=== PATIENT | female | born 1995 | race Caucasian/White ===

== ENCOUNTER 2018-04-14 15:58 | Outpatient (REF) | payer MEDICAID, SELFPAY ==
--- NOTE | 2018-04-14 14:45 | PAPFT_PTH ---
PATIENT: Pawel Ball LOC: [facility] U#:[id number] AGE/SX: 22/F ROOM: RE04/14/[address]: ABDIRAHMAN Han : 1995 BED: DIS: 04/14/2018 SPEC #: [id number] RECD: 04/14/18 17:15 STATUS: CARLOTA WATT #: [id number] FARIBA: 04/14/18 14:[address]: Julia Davis DEPT: [facility] Cytology RECD BY: Marina Blanco ENTERED: 04/14/18 17:15 SP TYPE: PAPFT SIRENA DR: ANN Koo Tissues: 1 - CX/ENDOCX FOR PAP SMEARS Procedures: PAP THIN PREP/UVM Screening Comments: [id number]
[2018-04-17 15:01] LABS: Chlamydia Result Negative; GC Result Negative
== END 2018-04-14 16:18 ==
LOC: LBN 15:58
PROVIDERS: PCP Nurse Practitioner Pediatrics; Visit Provider Nurse Practitioner Family
DX: Z11.3 Encounter for screening for infections with a predominantly sexual mode of transmission (principal); Z12.4 Encounter for screening for malignant neoplasm of cervix
CPT/HCPCS: 87491; 87591; 88142

== ENCOUNTER 2018-05-02 07:22 | Emergency (ER) | payer MEDICAID, SELFPAY ==
[2018-05-02 07:27] VITALS: BP 123/85; PULSE 61; RESP 16; TEMP 36.5; O2SAT 99
--- NOTE | 2018-05-02 07:31 | W.ED.GENAD ---
Discharge Plan Disposition Patient Disposition: HOME Condition: Improving Discharge Details Chief Complaint: Urinary Clinical Impression: Urinary tract infection Primary Care Provider: Ivory Xiong ED Provider: Estuardo Goode Home Meds and New Rx's Prescriptions: New cephalexin 500 mg tablet 500 mg PO TID 7 Days Qty: 21 RF: 0 phenazopyridine [Pyridium] 100 mg tablet 100 mg PO TID 0 Days RF: 0 Continue oxybutynin chloride 5 MG tablet extended release 24hr 5 mg PO DAILY Qty: 30 RF: 4 Discharge Instructions Instructions: Urinary Tract Infection in Women (ED) Additional Instructions: Please take medications as prescribed. Return if you develop a fever, worsening discomfort with urination, or any other acute concern. Medical Decision Making 22-year-old female presents from home with 2 days of dysuria. She has had recurrent UTIs in the past. She arrives with normal vital signs and an exam that is only notable for discrete suprapubic tenderness. Patient's urinalysis is consistent with acute urinary tract infection. We will treat her with a course of antibiotics as well as Pyridium. She will return to the ED for any acute concern. Lab Data Lab results reviewed: Yes I reviewed the patient's lab results. 05/02/18 07:24 Urine - Reflex from Ua Urine Culture - Pending Laboratory Tests Range/Units 05/02/18 07:24 Urine Color (Yellow) Yellow Urine Clarity Sl cloudy Urine pH (5-8) 7.0 Ur Specific [place] (1.005-1.025) 1.010 Urine Protein (Negative) mg/dL Negative Urine Ketones (Negative) mg/dL Negative Urine Blood (Negative) Moderate H Urine Nitrite (Negative) Negative Urine Bilirubin (Negative) Negative Urine Urobilinogen (Up TO 0.2) EU/dL 0.2 Ur Leukocyte Esterase (Negative) Small H Urine RBC (0-2) >50 H Urine WBC (0-5) HPF >50 Ur Epithelial Cells Not Applicable Urine Crystals Not Applicable Urine Bacteria Not Applicable Urine Mucus Not Applicable Ur Culture Indicated? Yes Urine Glucose (Negative) mg/dL Negative HPI General Mode of arrival: ambulatory. Date/Time Provider Initiated Documentation: 05/02/18 07:27. Limitations to Documentation: no limitations. Information obtained by: patient. History of Present Illness 22 year old F presents to the emergency department with the chief complaint of UTI, described as moderate, Quality is described as burning, and is localized to the abdomen and pelvis. Patient reports no radiation. Patient started experiencing this day(s) and it has been constant. No relieving factors improve symptom(s), No exacerbating factors reported . HPI Narrative: 22-year-old female presents with day 2 of increased frequency of urination and burning similar to previous urinary tract infections. She does take oxybutynin daily and is seen Dr. Jaffe in the past. No recent antibiotics. She has had normal menstrual period this month. She states that she has otherwise been well Related Data Home Medications Medication Instructions Recorded Confirmed oxybutynin chloride 5 mg PO DAILY #30 tab-cap 12/16/17 05/02/18 cephalexin 500 mg PO TID 7 Days #21 tab 05/02/18 phenazopyridine [Pyridium] 100 mg PO TID 0 Days tab 05/02/18 Previous Rx's Medication Instructions Recorded oxybutynin chloride 5 mg PO DAILY #30 tab-cap 12/16/17 cephalexin 500 mg PO TID 7 Days #21 tab 05/02/18 phenazopyridine [Pyridium] 100 mg PO TID 0 Days tab 05/02/18 Allergies Allergy/AdvReac Type Severity Reaction Status Date / Time No Known Allergies Allergy Verified 05/02/18 07:34 Review of Systems Review of Systems 4 systems reviewed and otherwise - Exam Narrative Exam Narrative: GEN: awake, alert, oriented 3. Pleasant, well groomed, interactive. HEAD: Normocephalic, atraumatic ENT: Mucous membranes moist, oropharynx unremarkable, External ear exam unremarkable EYES: PERRL, EOMI NECK: Full ROM, no NAYAN, no menigismus CHEST/RESP: Nontender, clear to auscultation bilateral, no wheeze/rhonchi/rales CARDIOVASCULAR: RRR, no murmur, rub avi. 2+ Rad pulse bilateral ABDOMEN: Soft, minimal suprapubic tenderness without rebound or guarding, no mass. +Bowel sounds EXT: Full ROM, no edema, no rash Neuro: Grossly normal neurologic exam, conversant, interactive. Psych: Speech fluent, thoughts congruent, affect normal
[2018-05-02 07:33] LABS: Bilirubin Negative (Negative); Blood Moderate (Negative); Clarity Sl Cloudy; Glucose Negative (Negative); Ketones Negative (Negative); Leukocyte Esterase Small (Negative); Nitrite Negative (Negative); Urobilinogen 0.2 EU/dL (Up TO 0.2)
--- NOTE | 2018-05-02 07:34 | ED.GENADUL_ITS ---
Discharge Plan Disposition Patient Disposition: HOME Condition: Improving Discharge Details Chief Complaint: Urinary Clinical Impression: Urinary tract infection Primary Care Provider: Ivory Xiong ED Provider: Estuardo Goode Home Meds and New Rx's Prescriptions: New cephalexin 500 mg tablet 500 mg PO TID 7 Days Qty: 21 RF: 0 phenazopyridine [Pyridium] 100 mg tablet 100 mg PO TID 0 Days RF: 0 Continue oxybutynin chloride 5 MG tablet extended release 24hr 5 mg PO DAILY Qty: 30 RF: 4 Discharge Instructions Instructions: Urinary Tract Infection in Women (ED) Additional Instructions: Please take medications as prescribed. Return if you develop a fever, worsening discomfort with urination, or any other acute concern. Medical Decision Making 22-year-old female presents from home with 2 days of dysuria. She has had recurrent UTIs in the past. She arrives with normal vital signs and an exam that is only notable for discrete suprapubic tenderness. Patient's urinalysis is consistent with acute urinary tract infection. We will treat her with a course of antibiotics as well as Pyridium. She will return to the ED for any acute concern. Lab Data Lab results reviewed: Yes I reviewed the patient's lab results. 05/02/18 07:24 Urine - Reflex from Ua Urine Culture - Pending Laboratory Tests Range/Units 05/02/18 07:24 Urine Color (Yellow) Yellow Urine Clarity Sl cloudy Urine pH (5-8) 7.0 Ur Specific [place] (1.005-1.025) 1.010 Urine Protein (Negative) mg/dL Negative Urine Ketones (Negative) mg/dL Negative Urine Blood (Negative) Moderate H Urine Nitrite (Negative) Negative Urine Bilirubin (Negative) Negative Urine Urobilinogen (Up TO 0.2) EU/dL 0.2 Ur Leukocyte Esterase (Negative) Small H Urine RBC (0-2) >50 H Urine WBC (0-5) HPF >50 Ur Epithelial Cells Not Applicable Urine Crystals Not Applicable Urine Bacteria Not Applicable Urine Mucus Not Applicable Ur Culture Indicated? Yes Urine Glucose (Negative) mg/dL Negative HPI General Mode of arrival: ambulatory . Date/Time Provider Initiated Documentation: 05/02/18 07:27 . Limitations to Documentation: no limitations . Information obtained by: patient . History of Present Illness 22 year old F presents to the emergency department with the chief complaint of UTI, described as moderate, Quality is described as burning, and is localized to the abdomen and pelvis. Patient reports no radiation. Patient started experiencing this day(s) and it has been constant. No relieving factors improve symptom(s), No exacerbating factors reported . HPI Narrative: 22-year-old female presents with day 2 of increased frequency of urination and burning similar to previous urinary tract infections. She does take oxybutynin daily and is seen Dr. Jaffe in the past. No recent antibiotics. She has had normal menstrual period this month. She states that she has otherwise been well Related Data Home Medications Medication Instructions Recorded Confirmed oxybutynin chloride 5 mg PO DAILY #30 tab-cap 12/16/17 05/02/18 cephalexin 500 mg PO TID 7 Days #21 tab 05/02/18 phenazopyridine [Pyridium] 100 mg PO TID 0 Days tab 05/02/18 Previous Rx's Medication Instructions Recorded oxybutynin chloride 5 mg PO DAILY #30 tab-cap 12/16/17 cephalexin 500 mg PO TID 7 Days #21 tab 05/02/18 phenazopyridine [Pyridium] 100 mg PO TID 0 Days tab 05/02/18 Allergies Allergy/AdvReac Type Severity Reaction Status Date / Time No Known Allergies Allergy Verified 05/02/18 07:34 Review of Systems Review of Systems 4 systems reviewed and otherwise - Exam Narrative Exam Narrative: GEN: awake, alert, oriented 3. Pleasant, well groomed, interactive. HEAD: Normocephalic, atraumatic ENT: Mucous membranes moist, oropharynx unremarkable, External ear exam unremarkable EYES: PERRL, EOMI NECK: Full ROM, no NAYAN, no menigismus CHEST/RESP: Nontender, clear to auscultation bilateral, no wheeze/rhonchi/rales CARDIOVASCULAR: RRR, no murmur, rub avi. 2+ Rad pulse bilateral ABDOMEN: Soft, minimal suprapubic tenderness without rebound or guarding, no mass. +Bowel sounds EXT: Full ROM, no edema, no rash Neuro: Grossly normal neurologic exam, conversant, interactive. Psych: Speech fluent, thoughts congruent, affect normal
[2018-05-02 07:44] LABS: WBC >50 HPF (0-5)
[2018-05-02 07:45] LABS: C & S Indicated? Yes; RBC >50 (0-2)
[2018-05-02 07:50] VITALS: BP 118/63; PULSE 64; RESP 16; TEMP 36.8; O2SAT 99
== END 2018-05-02 07:56 | disposition home or self-care (01) ==
PROVIDERS: Emergency Provider Emergency Medicine; PCP Nurse Practitioner Pediatrics
DX: N39.0 Urinary tract infection, site not specified (principal); Z87.440 Personal history of urinary (tract) infections
CPT/HCPCS: 99283; 81003; 81015; 87086

== ENCOUNTER 2019-04-05 06:57 | Emergency (ER) | payer OTHER, SELFPAY ==
[2019-04-05 07:03] VITALS: BP 116/65; PULSE 98; RESP 18; TEMP 36.6; O2SAT 99
--- NOTE | 2019-04-05 07:11 | W.ED.GENAD ---
Discharge Plan Disposition Patient Disposition: HOME Condition: Good Discharge Details Chief Complaint: Orthopedic Clinical Impression: Contusion of foot, right Primary Care Provider: Mikaela Alejandro ED Provider: Sterling Bueno Meds and New Rx's Prescriptions: Continued ascorbic acid (vitamin C) 1,000 mg tablet 1 gm PO DAILY Qty: 90 RF: 0 amitriptyline 10 mg tablet 10 mg PO DAILY Qty: 30 RF: 2 Discharge Instructions Additional Instructions: X-rays of your foot are negative per my review. Radiology will over read films later today. We will contact you if there is any discrepancy. Ice and ibuprofen over the next few days. Pain should diminish over time. Follow-up with primary care in 1 to 2 weeks if it is not getting better. Return to ED for worsening pain with inability to ambulate, numbness, weakness. Referrals: Mikaela Alejandro, COMPUTER OPERATOR [Primary Care Provider] - Medical Decision Making Unlikely to be fracture and is most likely soft tissue bruising. Urine test negative. Will give ibuprofen and obtain foot x-ray. X-rays of the right foot are negative for fracture per my review. Patient declines postop shoe. Recommend ice and ibuprofen for the next few days. Follow-up with primary care in 1 to 2 weeks if not better. Return to ED if problems. HPI General Mode of arrival: ambulatory. Date/Time Provider Initiated Documentation: 04/05/19 07:10. Limitations to Documentation: no limitations. Information obtained by: patient and RN notes reviewed. HPI Narrative: Patient presents to ED with right foot pain. Patient was cleaning out freezers at work last night. Frozen chicken fell out onto her foot. She is having difficulty ambulating or driving today because of pain at the top of the right foot. There is no numbness or tingling in the foot. She took Tylenol last night but nothing today. Related Data Home Medications Medication Instructions Recorded Confirmed ascorbic acid (vitamin C) 1,000 mg 1 gm PO DAILY #90 tab 05/08/18 04/05/19 tablet amitriptyline 10 mg tablet 10 mg PO DAILY #30 tab 02/20/19 04/05/19 Previous Rx's Medication Instructions Recorded ascorbic acid (vitamin C) 1,000 mg 1 gm PO DAILY #90 tab 05/08/18 tablet amitriptyline 10 mg tablet 10 mg PO DAILY #30 tab 02/20/19 Allergies Allergy/AdvReac Type Severity Reaction Status Date / Time No Known Allergies Allergy Verified 05/08/18 08:37 General Stated Complaint: Orthopedic ISIDORO: 4 Review of Systems Constitutional Constitutional: Denies weakness Musculoskeletal Musculoskeletal: Denies numbness and Denies tingling Comments: foot pain Neurologic Neurologic: Denies numbness, Denies tingling, Denies paresthesias and Denies weakness [facility] Medical History Heart murmur Miscarriage Surgical History CYST REMOVAL LEFT HAND Social History Smoking/Tobacco Use Status: Never Alcohol Intake: current Alcohol Intake frequency: holidays/special occasions only Drug use: Current Sobriety Substance use type: does not use Do you feel safe at home: Yes Do you feel safe in your relationship?: Yes Exam Narrative Exam Narrative: Vitals: Afebrile with normal vitals. General: WDWN female in NAD. MSE: Right foot with no obvious swelling. Tender over the dorsum of the foot along the first and second metatarsals. No tenderness involving the ankle. Neurovascularly intact with good sensation, cap refill, pulses. Course Vital Signs Vital signs: Vital Signs Temperature 97.9 F 04/05/19 07:03 Pulse 98 H 04/05/19 07:03 Respiratory Rate 18 04/05/19 07:03 Blood Pressure 116/65 04/05/19 07:03 Pulse Oximetry 99 04/05/19 07:03 Temperature 97.9 F 04/05/19 07:03 Temperature Source Skin 04/05/19 07:03 Pulse 98 H 04/05/19 07:03 Respiratory Rate 18 04/05/19 07:03 Respiratory Effort Non-Labored 04/05/19 07:06 Blood Pressure 116/65 04/05/19 07:03 Pulse Oximetry 99 04/05/19 07:03 Oxygen Delivery Method Room Air 04/05/19 07:03 Oxygen Flow Rate 0 04/05/19 07:03
--- NOTE | 2019-04-05 07:23 | NUR.NOTE ---
Nursing Note: pt brought in x-ray in wheelchair by RN
--- NOTE | 2019-04-05 07:26 | DI.RAD_ITS ---
EXAM: XR FOOT RT COMPLETE INDICATION: Trauma, foot pain COMPARISON: No exams were available for comparison TECHNIQUE: 2D digital imaging was performed. FINDINGS: The bony structures are intact. Joint spaces well maintained. There is no evidence a fracture or disl ocation.
[2019-04-05] MEDS: Ibuprofen 600 MG TAB PO (07:41)
--- NOTE | 2019-04-05 07:58 | DI.VRAD_ITS ---
PROCEDURE INFORMATION: Exam: XR Right Foot Complete Exam date and time: 04/05/2019 7:15 AM Clinical history: 23 years old, female; Injury or trauma; Injury history: Frozen chicken fell on right foot; Initial encounter; Blunt trauma; Injury details: Medial dorsal foot pain radiating to plantar surface TECHNIQUE: Imaging protocol: XR Right foot. Views: 3 or more views. COMPARISON: No relevant prior studies available. FINDINGS: Bones/joints: Normal. Soft tissues: Normal. IMPRESSION: No acute findings. Dictated and Authenticated by: Jacob Ziegler MD. Ordering:ANKUR Katz MD
== END 2019-04-05 07:45 | disposition home or self-care (01) ==
PROVIDERS: Emergency Provider Emergency Medicine; PCP Nurse Practitioner
DX: S90.31XA Contusion of right foot, initial encounter (principal); W22.8XXA Striking against or struck by other objects, initial encounter
CPT/HCPCS: 81025; 99283; 73630; 99282

== ENCOUNTER 2019-04-19 17:20 | Outpatient (REF) | payer OTHER, SELFPAY ==
--- NOTE | 2019-04-19 16:00 | PAPFT_PTH ---
PATIENT: Pawel Ball LOC: [facility] U#:[id number] AGE/SX: 23/F ROOM: RE04/19/[address]: Mikaela Alejandro, PhD SENIOR QUALITY CONTROL TECHNICIAN : 1995 BED: DIS: 04/19/2019 SPEC #: [id number] RECD: 04/20/19 12:49 STATUS: CARLOTA RESarita #: [id number] FARIBA: 04/19/19 16:[address]: Mikaela Alejandro DEPT: [facility] Cytology RECD BY: Marina Blanco Tissues: 1 - CX/ENDOCX FOR PAP SMEARS Procedures: PAP THIN PREP/UVM Screening HPV DNA PROBE Comments: [id number] (CHLAMYDIA/GC)
[2019-04-23 13:33] LABS: Chlamydia Result Negative; GC Result Negative; Specimen Description SEE COMMENTS
== END 2019-04-19 17:40 ==
LOC: LBN 17:20
PROVIDERS: PCP Nurse Practitioner; Visit Provider Nurse Practitioner
DX: Z12.4 Encounter for screening for malignant neoplasm of cervix (principal); Z11.51 Encounter for screening for human papillomavirus (HPV); Z11.3 Encounter for screening for infections with a predominantly sexual mode of transmission
CPT/HCPCS: 87491; 87591; 88142; 87624

== ENCOUNTER 2019-06-24 19:28 | Emergency (ER) | payer OTHER, SELFPAY ==
[2019-06-24 19:32] VITALS: BP 137/70; PULSE 69; RESP 16; TEMP 36.4; O2SAT 98
[2019-06-24 19:51] LABS: Bilirubin Negative (Negative); Blood Moderate (Negative); Clarity Clear (Clear); Ketones Negative (Negative); Leukocyte Esterase Small (Negative)
[2019-06-24 19:53] LABS: Nitrite Positive (Negative)
--- NOTE | 2019-06-24 19:53 | W.ED.GENAD ---
Discharge Plan Disposition Patient Disposition: HOME Condition: Improving Discharge Details Chief Complaint: Urinary Clinical Impression: Recurrent UTI Primary Care Provider: Mikaela Alejandro ED Provider: Ananth Nascimento Home Meds and New Rx's Prescriptions: New cephalexin 500 mg capsule 500 mg PO QID Qty: 16 RF: 0 Continued ascorbic acid (vitamin C) 1,000 mg tablet 1 gm PO DAILY Qty: 90 RF: 0 fluoxetine 20 mg capsule 20 mg PO DAILY Qty: 30 RF: 1 amitriptyline 10 mg tablet 10 mg PO DAILY Qty: 30 RF: 2 Discharge Instructions Instructions: Urinary Tract Infection in Women (ED) Additional Instructions: You were seen in the emergency department today for evaluation of a UTI. You should follow-up with Dr. Jaffe. Use antibiotics as prescribed, take the full course of antibiotics. Return to the emergency department immediately if you develop any fevers, back pain, vomiting, or for any other concerning or worsening symptoms at all. Medical Decision Making This patient is a 24-year-old female who presents to the emergency department with a chief complaint of dysuria, urinary frequency. Based on this history, exam, as well as a review of the medical records, as well as a review of the urinalysis, this appears to be due to a UTI. Patient's last positive urine culture grew E. coli, sensitive to everything. Patient will be put on cephalexin. She will be provided return precautions and discharge instructions and agrees with the outpatient treatment plan. She will need follow-up with Dr. Jaffe. HPI I think I have a UTI. This patient is a 24-year-old female who presents to the emergency department with chief complaint of 3 hours of urinary frequency, burning with urination. She denies any fevers, nausea, vomiting, back pain, abdominal pain. No other recent illness. Nothing has made it better or worse. General Date/Time Provider Initiated Documentation: 06/24/19 19:47. Related Data Home Medications Medication Instructions Recorded Confirmed ascorbic acid (vitamin C) 1,000 mg 1 gm PO DAILY #90 tab 05/08/18 05/31/19 tablet amitriptyline 10 mg tablet 10 mg PO DAILY #30 tab 05/24/19 06/24/19 fluoxetine 20 mg capsule 20 mg PO DAILY #30 cap 05/31/19 06/24/19 cephalexin 500 mg PO QID #16 cap 06/24/19 Previous Rx's Medication Instructions Recorded ascorbic acid (vitamin C) 1,000 mg 1 gm PO DAILY #90 tab 05/08/18 tablet amitriptyline 10 mg tablet 10 mg PO DAILY #30 tab 05/24/19 fluoxetine 20 mg capsule 20 mg PO DAILY #30 cap 05/31/19 cephalexin 500 mg PO QID #16 cap 06/24/19 Allergies Allergy/AdvReac Type Severity Reaction Status Date / Time No Known Allergies Allergy Verified 05/31/19 11:45 General Stated Complaint: Urinary ISIDORO: 4 Review of Systems Narrative: Gen: no fevers. Card: no chest pain. Resp: No cough, difficulty breathing. Abd: no vomiting, abd pain. The rest of the 10 point review of systems is negative except as described in the HPI and above in the ROS. [facility] Medical History Heart murmur Interstitial cystitis (Acute) Miscarriage Surgical History CYST REMOVAL LEFT HAND Family History Mother Depression Heart murmur Father Essential hypertension Other Dementia PGF Colon cancer Sister No problems noted. Brother No problems noted. Maternal Grandfather No problems noted. Paternal Grandfather , in his 80s Colon cancer Maternal Grandmother No problems noted. Paternal Grandmother Dementia Social History Smoking/Tobacco Use Status: Former Tobacco Use Quit Date: 07/11/18 Tobacco: How many years used: 5 Second Hand Exposure: Yes Alcohol Intake: current Alcohol Intake frequency: holidays/special occasions only Alcohol type: hard liquor Drug use: Current Sobriety Substance use type: does not use and marijuana Caregiver/Support person: No Household members: significant other Housing: apartment Communication Needs: None Do you need help understanding health information?: Never Pets and animals: No Sexually active: Yes Do you think of yourself as: straight/heterosexual Current gender identity: female What is your relationship status?: living with partner How often do you talk on the phone with friends or family?: once per week How often do you get together with friends or relatives?: once per week How often do you attend methodist or yarsanism services?: decline to answer Do you belong to any clubs or organized social groups?: no Panel score (0-1 are the most socially isolated patients): 1 What type of physical activity do you participate in: decline to answer Duration: 30-45 minutes/day Frequency: 3-4 times per week Jackie/Amish: None Special jackie needs: No Seatbelt use: always Helmet use: Yes Helmet use: always Drive intox or ride 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 Neck: normal ROM. Lung: Clear to auscultation bilaterally, no respiratory distress. Card: RRR, normal S1, S2, no M/R/G. 2+ radial pulses bilaterally. Abd: soft, non-tender, no hepatosplenomegaly. Back: no CVA tenderness. Upper extremity: no evidence of trauma. Neuro: speech normal, no gross motor deficits. Psych: alert and oriented to person, place time, normal affect. Skin: warm, intact. Course Vital Signs Vital signs: Vital Signs Temperature 36.4 C L 06/24/19 19:32 Pulse 69 06/24/19 19:32 Respiratory Rate 16 06/24/19 19:32 Blood Pressure 137/70 06/24/19 19:32 Pulse Oximetry 98 06/24/19 19:32 Temperature 36.4 C L 06/24/19 19:32 Temperature Source Skin 06/24/19 19:32 Pulse 69 06/24/19 19:32 Respiratory Rate 16 06/24/19 19:32 Respiratory Effort 06/24/19 19:35 Blood Pressure 137/70 06/24/19 19:32 Blood Pressure Position Sitting 06/24/19 19:32 Pulse Oximetry 98 06/24/19 19:32 Oxygen Delivery Method Room Air 06/24/19 19:32 Oxygen Flow Rate 0 06/24/19 19:32
[2019-06-24 19:54] LABS: Glucose 100 mg/dL (Negative)
[2019-06-24 20:02] LABS: Bacteria Few HPF (Negative); C & S Indicated? Yes; Crystals Negative HPF (Negative); Epithelial Cells Moderate HPF (Negative); Mucus Negative (Negative); WBC >50 HPF (0-5)
[2019-06-24] MEDS: Cephalexin 500 MG CAP, 4 CAPS/BTL PO (20:19)
== END 2019-06-24 20:20 | disposition home or self-care (01) ==
PROVIDERS: Emergency Provider Emergency Medicine; PCP Nurse Practitioner
DX: N39.0 Urinary tract infection, site not specified (principal); Z87.440 Personal history of urinary (tract) infections
CPT/HCPCS: 81025; 99283; 81003; 81015; 87086

== ENCOUNTER 2019-07-26 08:19 | Emergency (ER) | payer OTHER, SELFPAY ==
--- NOTE | 2019-07-26 08:25 | W.ED.GENAD ---
Discharge Plan Disposition Patient Disposition: HOME Discharge Details Chief Complaint: Urinary Clinical Impression: UTI (urinary tract infection) Primary Care Provider: Mikaela Alejandro ED Provider: Vidal Boyd Home Meds and New Rx's Prescriptions: New cephalexin 500 mg capsule 500 mg PO BID 7 Days Qty: 14 RF: 0 No Action ascorbic acid (vitamin C) 1,000 mg tablet 1 gm PO DAILY Qty: 90 RF: 0 amitriptyline 10 mg tablet 10 mg PO DAILY Qty: 30 RF: 2 Discharge Instructions Instructions: Urinary Tract Infection in Women (ED) Additional Instructions: Your urinalysis is concerning for infection. It is very important that you take the full course of your antibiotics. I would like you to follow-up with your primary care provider as this is your roughly third UTI and is many months. Return should you start developing high fever or severe pain. Referrals: Mikaela Alejandro, ROD HANGER [Primary Care Provider] - 3 days Medical Decision Making This is a nontoxic-appearing 24-year-old female who presents to the emergency department with UTI symptoms. UA concerning for such. Vital signs stable. She has no back or flank pain. She has had several urinary tract infections in the past, therefore I discussed close follow-up with her primary care provider. We did discuss starting antibiotics and taking them for their entire course. Return precautions provided. HPI General Date/Time Provider Initiated Documentation: 07/26/19 08:24. HPI Narrative: Patient is a 24-year-old female with significant history for frequent urinary tract infections who presents to the emergency department with roughly 24 hours of dysuria, frequency and urgency which became worse this morning. She did take AZO with some relief. She denies any fevers, low back pain or vomiting. Related Data Home Medications Medication Instructions Recorded Confirmed ascorbic acid (vitamin C) 1,000 mg 1 gm PO DAILY #90 tab 05/08/18 07/26/19 tablet amitriptyline 10 mg tablet 10 mg PO DAILY #30 tab 05/24/19 07/26/19 cephalexin 500 mg PO BID 7 Days #14 cap 07/26/19 Previous Rx's Medication Instructions Recorded ascorbic acid (vitamin C) 1,000 mg 1 gm PO DAILY #90 tab 05/08/18 tablet amitriptyline 10 mg tablet 10 mg PO DAILY #30 tab 05/24/19 cephalexin 500 mg PO BID 7 Days #14 cap 07/26/19 Allergies Allergy/AdvReac Type Severity Reaction Status Date / Time No Known Allergies Allergy Verified 07/26/19 08:30 General ISIDORO: 4 Review of Systems Constitutional Constitutional: Denies chills, Denies fatigue, Denies fever(s) and Denies lethargy Gastrointestinal Gastrointestinal: Denies nausea and Denies vomiting Genitourinary Genitourinary: Reports dysuria, Denies flank pain, Denies urinary incontinence, Reports urinary hesitancy and Reports urinary urgency Endocrine Endocrine: Denies fatigue [facility] Medical History Heart murmur Interstitial cystitis (Acute) Miscarriage Surgical History CYST REMOVAL LEFT HAND Family History Mother Depression Heart murmur Father Essential hypertension Other Dementia PGF Colon cancer Sister No problems noted. Brother No problems noted. Maternal Grandfather No problems noted. Paternal Grandfather , in his 80s Colon cancer Maternal Grandmother No problems noted. Paternal Grandmother Dementia Social History Smoking/Tobacco Use Status: Former Tobacco Use Quit Date: 07/11/18 Tobacco: How many years used: 5 Second Hand Exposure: Yes Alcohol Intake: current Alcohol Intake frequency: holidays/special occasions only Alcohol type: hard liquor Drug use: Current Sobriety Substance use type: does not use and marijuana Caregiver/Support person: No Household members: significant other Housing: apartment Communication Needs: None Do you need help understanding health information?: Never Pets and animals: No Sexually active: Yes Do you think of yourself as: straight/heterosexual Current gender identity: female What is your relationship status?: living with partner How often do you talk on the phone with friends or family?: once per week How often do you get together with friends or relatives?: once per week How often do you attend rastafarian or oriental orthodox services?: decline to answer Do you belong to any clubs or organized social groups?: no Panel score (0-1 are the most socially isolated patients): 1 What type of physical activity do you participate in: decline to answer Duration: 30-45 minutes/day Frequency: 3-4 times per week Jackie/Presybeterian: None Special jackie needs: No Seatbelt use: always Helmet use: Yes Helmet use: always Drive intox or ride w/intox party bus driver: No Do you feel safe at home: Yes Do you feel safe in your relationship?: Yes Exam Const General: cooperative, healthy appearing, comfortable and no acute distress Orientation: alert, awake and oriented x3 HENMT Head: normal to inspection Mouth: oral mucosae normal Eyes Pupils: PERRL EOM: EOM intact bilaterally Neck Neck: full ROM Chest Chest: normal inspection of the chest Resp Effort & Inspection: normal respiratory effort Cardio Pulses: normal peripheral pulses GI Inspection: normal to inspection Palpation: soft and nontender Back/Spine/Pelvis Back: no CVA tenderness
[2019-07-26 08:26] VITALS: BP 119/46; PULSE 81; RESP 18; TEMP 36.6; O2SAT 98
[2019-07-26 08:31] LABS: Clarity Clear (Clear); Specific Gravity 1.015 (1.005-1.025)
[2019-07-26 08:33] LABS: Bilirubin Color Interference (Negative); Blood Color Interference (Negative); Glucose Color Interference mg/dL (Negative); Ketones Color Interference mg/dL (Negative); Leukocyte Esterase Color Interference (Negative); Nitrite Color Interference (Negative); Urobilinogen Color Interference EU/dL (Up TO 0.2)
[2019-07-26 08:37] LABS: Bacteria Few HPF (Negative); C & S Indicated? Yes; Casts Negative LPF (Negative); Crystals Negative HPF (Negative); Epithelial Cells Few HPF (Negative); Mucus Negative (Negative); RBC 20-50 HPF (0-2); WBC >50 HPF (0-5)
== END 2019-07-26 09:04 | disposition home or self-care (01) ==
LOC: ER 08:46
PROVIDERS: Emergency Provider Physician Assistant; PCP Nurse Practitioner
DX: N39.0 Urinary tract infection, site not specified (principal); Z87.440 Personal history of urinary (tract) infections
CPT/HCPCS: 81025; 99283; 81003; 81015; 87086

== ENCOUNTER 2019-08-02 10:10 | Outpatient (CLI) | payer OTHER, SELFPAY ==
[2019-08-03 10:01] LABS: HIV-1/2 Ag & Ab Screen Negative (Negative)
[2019-08-03 11:25] LABS: Syphilis Serology (RPR) Negative (Negative)
[2019-08-03 14:30] LABS: Chlamydia Result Negative (Negative); GC Result Negative (Negative)
== END 2019-08-02 10:30 ==
PROVIDERS: PCP Nurse Practitioner; Visit Provider Nurse Practitioner
DX: Z11.3 Encounter for screening for infections with a predominantly sexual mode of transmission (principal); Z11.4 Encounter for screening for human immunodeficiency virus [HIV]
CPT/HCPCS: 36415; 87389; 87491; 87591; 86592

== ENCOUNTER 2019-09-27 19:08 | Emergency (ER) | payer OTHER, SELFPAY ==
[2019-09-27 19:11] VITALS: BP 117/68; PULSE 69; RESP 14; TEMP 36.9; O2SAT 99
--- NOTE | 2019-09-27 19:25 | W.ED.GENAD ---
Discharge Plan Disposition Patient Disposition: HOME Condition: Good Discharge Details Chief Complaint: Urinary Clinical Impression: Urinary tract infection Primary Care Provider: Mikaela Alejandro ED Provider: Agustin Kellogg Home Meds and New Rx's Prescriptions: New cephalexin [Keflex] 500 mg capsule 500 mg PO BID 5 Days Qty: 10 RF: 0 No Action ascorbic acid (vitamin C) 1,000 mg tablet 1 gm PO DAILY Qty: 90 RF: 0 amitriptyline 10 mg tablet 10 mg PO DAILY Qty: 30 RF: 2 Discharge Instructions Instructions: Urinary Tract Infection in Women (ED) Additional Instructions: You have a urinary tract infection, please take the antibiotic as directed. Please take cranberry concentrate or drink cranberry juice to help alleviate the UTI. Please drink plenty of fluids. If you notice any worsening of your symptoms, or any new symptoms such as vomiting, diarrhea, fever, chills, shortness of breath, chest pain, numbness, weakness, or fainting , please return immediately to the emergency department for reevaluation. Please follow up with your primary care provider as soon as possible for reassessment and reevaluation. As always, it was a pleasure participating in your medical care today. Referrals: Mikaela Alejandro, MARCIO [Primary Care Provider] - Medical Decision Making Pleasant 24-year-old female with a past medical history of interstitial cystitis, as well as recurrent UTIs who presents today for evaluation of urinary frequency, burning, and symptoms which she describes as identical to her previous UTIs. She denies any flank pain, pelvic pain, pelvic or vaginal discharge. She denies any recent STDs. Period was 2 weeks ago. She states that the symptoms are not consistent with her interstitial cystitis symptoms. She denies any other complaints at this time. No other modifying factors. Exam demonstrates a nontoxic well-appearing female, no flank or CVA tenderness. No abdominal or pelvic tenderness. Symptoms and consistent with appendicitis, or other pelvic etiology. Signs and symptoms clinically consistent with urinary tract infection. She did take Azo, and this does obscure her urine to a degree, however symptoms and findings are concerning and consistent with urinary tract infection. Review of her records demonstrate that normally her urine cultures come back as gram-positive dieudonne mixed and E. coli. Will give Keflex for home use. She has no antibiotic allergies. Discussed red flags which to return. Currently the patient shows no signs of pyelonephritis, or systemic illness requiring IV antibiotics or further evaluation. I have extensively reviewed the treatment plan and discharge instructions with the patient. I have addressed all patient concerns at this time. The patient was made aware of what symptoms to monitor for that would warrant a return to the emergency department. Discussed the plan with the patient, they demonstrate verbal understanding and agreement with our assessment and plan at this time. HPI General Date/Time Provider Initiated Documentation: 09/27/19 19:20. HPI Narrative: 24-year-old female with no significant past medical history except for interstitial cystitis, previous UTIs, who presents today for evaluation of suspected UTI. Patient states that for the last 12 to 24 hours she has had mild burning increased frequency of urination. She denies any fever chills flank or back pain. She denies any pelvic or abdominal pain. She denies any nausea vomiting or diarrhea. Last period was 2 weeks ago. She states that the symptoms feel identical to previous UTIs, and notably inconsistent with her interstitial cystitis. Patient did take some Azo prior to coming here, she states that this slightly improved her symptoms. She denies any vaginal discharge or history of STDs recently, or other complaints. Related Data Home Medications Medication Instructions Recorded Confirmed ascorbic acid (vitamin C) 1,000 mg 1 gm PO DAILY #90 tab 05/08/18 09/27/19 tablet amitriptyline 10 mg tablet 10 mg PO DAILY #30 tab 08/24/19 09/27/19 cephalexin [Keflex] 500 mg PO BID 5 Days #10 cap 09/27/19 Previous Rx's Medication Instructions Recorded ascorbic acid (vitamin C) 1,000 mg 1 gm PO DAILY #90 tab 05/08/18 tablet amitriptyline 10 mg tablet 10 mg PO DAILY #30 tab 08/24/19 cephalexin [Keflex] 500 mg PO BID 5 Days #10 cap 09/27/19 Allergies Allergy/AdvReac Type Severity Reaction Status Date / Time No Known Allergies Allergy Verified 09/27/19 19:15 General Stated Complaint: Urinary ISIDORO: 3 Review of Systems All systems reviewed & are unremarkable except as noted in HPI and below PFSH Social History Smoking/Tobacco Use Status: Former Tobacco Use Quit Date: 07/11/18 Tobacco: How many years used: 5 Second Hand Exposure: Yes Alcohol Intake: current Alcohol Intake frequency: holidays/special occasions only Alcohol type: hard liquor Drug use: Current Sobriety Substance use type: does not use and marijuana Caregiver/Support person: No Household members: significant other Housing: apartment Communication Needs: None Do you need help understanding health information?: Never Pets and animals: No Sexually active: Yes Do you think of yourself as: straight/heterosexual Current gender identity: female What is your relationship status?: living with partner How often do you talk on the phone with friends or family?: once per week How often do you get together with friends or relatives?: once per week How often do you attend buddhist or tenriism services?: decline to answer Do you belong to any clubs or organized social groups?: no Panel score (0-1 are the most socially isolated patients): 1 What type of physical activity do you participate in: decline to answer Duration: 30-45 minutes/day Frequency: 3-4 times per week Jackie/Methodist: None Special jackie needs: No Seatbelt use: always Helmet use: Yes Helmet use: always Drive intox or ride w/intox pizza delivery driver: No Do you feel safe at home: Yes Do you feel safe in your relationship?: Yes Exam Narrative Exam Narrative: 1.Const: Well-nourished, Well-developed, appearing stated age 2.Eyes: PERRL, no conjunctival injection, and symmetrical lids. 3.ENT: Atraumatic external nose and ears. Moist MM. Neck: Symmetric, trachea midline, No thyromegaly. 4.CVS: +S1/S2, No murmurs or gallops. Peripheral pulses 2+ and equal in all extremities. Brisk capillary refill in all extremities. 5.RESP: Unlabored respiratory effort. Clear to auscultation bilaterally. No wheezes rales or rhonchi 6.GI: Soft, Nontender/Nondistended, No hepatosplenomegaly. No guarding or rebound. No flank or CVA tenderness. No pelvic or suprapubic tenderness. 7.MSK: Normocephalic/Atraumatic, Extremities w/o deformity or ttp No cyanosis or clubbing, Normal movement of all extremities 8.Skin: Warm, Dry. No rashes or lesions. 9.Neuro: manager part II-XII grossly intact. Sensation grossly intact, no focal neurologic deficits. 10.Psych: (AAO) x3. Appropriate mood and affect Course Vital Signs Vital signs: Vital Signs Temperature 36.9 C 09/27/19 19:11 Pulse 69 09/27/19 19:11 Respiratory Rate 14 09/27/19 19:11 Blood Pressure 117/68 09/27/19 19:11 Pulse Oximetry 99 09/27/19 19:11 Temperature 36.9 C 09/27/19 19:11 Temperature Source Skin 09/27/19 19:11 Pulse 69 09/27/19 19:11 Respiratory Rate 14 09/27/19 19:11 Blood Pressure 117/68 09/27/19 19:11 Blood Pressure Position Sitting 09/27/19 19:11 Pulse Oximetry 99 09/27/19 19:11 Oxygen Delivery Method Room Air 09/27/19 19:11 Oxygen Flow Rate 0 09/27/19 19:11 Pain Level 6 09/27/19 19:11
[2019-09-27 19:29] LABS: Clarity Clear (Clear); Specific Gravity < 1.005 (1.005-1.025)
[2019-09-27 19:35] LABS: Bacteria Negative HPF (Negative); C & S Indicated? Yes; Casts Negative LPF (Negative); Crystals Negative HPF (Negative); Epithelial Cells Rare HPF (Negative); Mucus Negative (Negative); Other Cells Negative (Negative); RBC Negative HPF (0-2)
[2019-09-27] MEDS: Cephalexin 500 MG CAP PO (19:43)
== END 2019-09-27 19:43 | disposition home or self-care (01) ==
LOC: ER 19:34
PROVIDERS: Emergency Provider Student in an Organized Health Care Education/Training Program; PCP Nurse Practitioner
DX: N39.0 Urinary tract infection, site not specified (principal)
CPT/HCPCS: 99283; 81003; 81015; 87086

== ENCOUNTER 2020-11-04 13:36 | Outpatient (REF) | payer OTHER, SELFPAY ==
[2020-11-04 10:59] LABS: BUN 12 mg/dL (7-18); CREATININE 0.7 mg/dL (0.55-1.02)
== END 2020-11-04 13:37 | disposition home or self-care (01) ==
LOC: LBN 13:36
PROVIDERS: PCP Nurse Practitioner; Visit Provider Nurse Practitioner Gerontology
DX: R10.31 Right lower quadrant pain (principal); N30.10 Interstitial cystitis (chronic) without hematuria
CPT/HCPCS: 84520; 82565

== ENCOUNTER 2021-02-16 17:38 | Outpatient (REF) | payer OTHER, SELFPAY ==
[2021-02-16 20:41] LABS: Bilirubin Negative (Negative); Blood Negative (Negative); Clarity Clear (Clear); Glucose Negative (Negative); Ketones Negative (Negative); Leukocyte Esterase Trace (Negative); Nitrite Negative (Negative); Urobilinogen 0.2 EU/dL (Up TO 0.2)
[2021-02-16 20:49] LABS: Bacteria Moderate HPF (Negative); Epithelial Cells Few HPF (Negative); RBC 0-2 HPF (0-2)
[2021-02-16 20:50] LABS: C & S Indicated? C&S Done As Ordered; Casts Negative LPF (Negative); Crystals Negative HPF (Negative); Mucus Negative (Negative)
== END 2021-02-16 17:39 | disposition home or self-care (01) ==
LOC: LBN 17:38
PROVIDERS: PCP Nurse Practitioner; Visit Provider Nurse Practitioner Family
DX: N39.0 Urinary tract infection, site not specified (principal)
CPT/HCPCS: 81003; 81015; 87086

== ENCOUNTER 2021-03-06 19:42 | Outpatient (REF) | payer OTHER, SELFPAY ==
[2021-03-09 15:18] LABS: Chlamydia Result Negative (Negative); GC Result Negative (Negative)
== END 2021-03-06 19:43 | disposition home or self-care (01) ==
LOC: LBN 19:42
PROVIDERS: PCP Nurse Practitioner; Visit Provider Physician Assistant
DX: R30.0 Dysuria (principal)
CPT/HCPCS: 87077; 87491; 87591; 87086; 87186; 87480; 87510; 87660

== ENCOUNTER 2021-03-20 11:44 | Outpatient (REF) | payer OTHER, SELFPAY | END 2021-03-20 11:45 | disposition home or self-care (01) | LOC: LBN 11:44 | PROVIDERS: PCP Nurse Practitioner; Visit Provider Obstetrics & Gynecology | DX: R10.2 Pelvic and perineal pain (principal) | CPT/HCPCS: 87480; 87510; 87660 ==

== ENCOUNTER 2021-04-20 16:28 | Outpatient (REF) | payer OTHER, SELFPAY ==
[2021-04-20 19:29] LABS: Bilirubin Negative (Negative); Blood Trace-lysed (Negative); Clarity Clear (Clear); Glucose Negative (Negative); Ketones Negative (Negative); Leukocyte Esterase Small (Negative); Nitrite Negative (Negative); Urobilinogen 0.2 EU/dL (Up TO 0.2); pH 6.5 (5-8)
[2021-04-20 20:03] LABS: Bacteria Few HPF (Negative); C & S Indicated? Yes; Crystals Negative HPF (Negative); Epithelial Cells Negative HPF (Negative); Mucus Negative (Negative); RBC 0-2 HPF (0-2)
== END 2021-04-20 16:29 | disposition home or self-care (01) ==
LOC: LBN 16:28
PROVIDERS: PCP Nurse Practitioner; Visit Provider Physician Assistant
DX: R35.0 Frequency of micturition (principal); R39.15 Urgency of urination
CPT/HCPCS: 87077; 81003; 81015; 87086; 87186

== ENCOUNTER 2021-05-04 12:26 | Outpatient (REF) | payer OTHER, SELFPAY ==
[2021-05-04 20:06] LABS: Bilirubin Negative (Negative); Blood Negative (Negative); Clarity Clear (Clear); Glucose Negative (Negative); Ketones Negative (Negative); Leukocyte Esterase Negative (Negative); Nitrite Positive (Negative); Specific Gravity 1.015 (1.005-1.025); Urobilinogen 0.2 EU/dL (Up TO 0.2)
[2021-05-04 20:17] LABS: Bacteria Negative HPF (Negative); C & S Indicated? No/Sq. Contamination; Casts Negative LPF (Negative); Crystals Negative HPF (Negative); Epithelial Cells Moderate HPF (Negative); Mucus Negative (Negative); Other Cells Rare Renal (Negative); RBC Negative HPF (0-2); WBC 0-2 HPF (0-5)
[2021-05-06 15:26] LABS: Chlamydia Result Negative (Negative); GC Result Negative (Negative)
== END 2021-05-04 12:27 | disposition home or self-care (01) ==
LOC: LBN 12:26
PROVIDERS: PCP Nurse Practitioner; Visit Provider Physician Assistant
DX: N39.0 Urinary tract infection, site not specified (principal); R30.0 Dysuria; N89.8 Other specified noninflammatory disorders of vagina
CPT/HCPCS: 87491; 87591; 81003; 81015; 87480; 87510; 87660

== ENCOUNTER 2021-05-25 15:07 | Outpatient (REF) | payer SELFPAY ==
[2021-05-25 20:23] LABS: Bilirubin Negative (Negative); Blood Trace-intact (Negative); Clarity Clear (Clear); Glucose 100 mg/dL (Negative); Ketones Negative (Negative); Leukocyte Esterase Small (Negative); Nitrite Positive (Negative); Specific Gravity < 1.005 (1.005-1.025); pH 5.5 (5-8)
[2021-05-25 20:26] LABS: Bacteria Moderate HPF (Negative); C & S Indicated? Yes; Casts Negative LPF (Negative); Crystals Negative HPF (Negative); Epithelial Cells Few HPF (Negative); Mucus Negative (Negative)
== END 2021-05-25 15:08 | disposition home or self-care (01) ==
LOC: NCHCN 15:07
PROVIDERS: PCP Nurse Practitioner Family; Visit Provider Nurse Practitioner Family
DX: R39.89 Other symptoms and signs involving the genitourinary system (principal)
CPT/HCPCS: 81003; 81015; 87086

== ENCOUNTER 2021-07-30 16:44 | Outpatient (REF) | payer SELFPAY ==
[2021-07-31 21:15] LABS: GC Result Negative (Negative)
[2021-08-01 09:40] LABS: Chlamydia Result Positive (Negative)
== END 2021-07-30 16:45 | disposition home or self-care (01) ==
LOC: LBN 16:44
PROVIDERS: PCP Nurse Practitioner; Visit Provider Nurse Practitioner Family
DX: Z11.3 Encounter for screening for infections with a predominantly sexual mode of transmission (principal)
CPT/HCPCS: 87491; 87591

== ENCOUNTER 2021-08-07 11:58 | Outpatient (REF) | payer SELFPAY ==
[2021-08-10 15:35] LABS: GC Result Negative (Negative)
[2021-08-10 16:25] LABS: Chlamydia Result Positive (Negative)
== END 2021-08-07 11:59 | disposition home or self-care (01) ==
LOC: LBN 11:58
PROVIDERS: PCP Nurse Practitioner; Visit Provider Nurse Practitioner Family
DX: R30.0 Dysuria (principal); Z11.3 Encounter for screening for infections with a predominantly sexual mode of transmission
CPT/HCPCS: 87491; 87591

== ENCOUNTER 2021-11-16 18:31 | Outpatient (REF) | payer SELFPAY ==
[2021-11-16 22:22] LABS: Bilirubin Negative (Negative); Blood Negative (Negative); Clarity Clear (Clear); Glucose Negative (Negative); Ketones Negative (Negative); Leukocyte Esterase Negative (Negative); Nitrite Negative (Negative); Urobilinogen 0.2 EU/dL (Up TO 0.2)
[2021-11-18 14:59] LABS: Chlamydia Result Negative (Negative); GC Result Negative (Negative)
== END 2021-11-16 18:32 | disposition home or self-care (01) ==
LOC: LBN 18:31
PROVIDERS: PCP Nurse Practitioner; Visit Provider Physician Assistant
DX: R30.0 Dysuria (principal); R39.89 Other symptoms and signs involving the genitourinary system; Z11.3 Encounter for screening for infections with a predominantly sexual mode of transmission
CPT/HCPCS: 87491; 87591; 81003; 87480; 87510; 87660

== ENCOUNTER 2021-12-28 14:50 | Outpatient (REF) | payer SELFPAY ==
[2021-12-28 22:21] LABS: Bilirubin Negative (Negative); Blood Negative (Negative); Clarity Clear (Clear); Glucose Negative (Negative); Ketones Negative (Negative); Leukocyte Esterase Negative (Negative); Nitrite Negative (Negative); Urobilinogen 0.2 EU/dL (Up TO 0.2); pH 7.5 (5-8)
[2021-12-31 08:44] LABS: Chlamydia Result Negative (Negative); GC Result Negative (Negative)
== END 2021-12-28 14:51 | disposition home or self-care (01) ==
LOC: NCHCN 14:50
PROVIDERS: PCP Nurse Practitioner; Visit Provider Physician Assistant
DX: R30.0 Dysuria (principal); R39.89 Other symptoms and signs involving the genitourinary system; Z11.3 Encounter for screening for infections with a predominantly sexual mode of transmission; N89.8 Other specified noninflammatory disorders of vagina
CPT/HCPCS: 87491; 87591; 81003; 87480; 87510; 87660

== ENCOUNTER 2022-01-19 16:36 | Outpatient (REF) | payer SELFPAY ==
[2022-01-19 13:16] LABS: Bilirubin Negative (Negative); Blood Large (Negative); Clarity Clear (Clear); Glucose Negative (Negative); Ketones Negative (Negative); Leukocyte Esterase Small (Negative); Nitrite Negative (Negative); Specific Gravity 1.025 (1.005-1.025); Urobilinogen 0.2 EU/dL (Up TO 0.2)
[2022-01-19 13:32] LABS: Bacteria Many HPF (Negative); C & S Indicated? No/Sq. Contamination; Casts Negative LPF (Negative); Crystals Negative HPF (Negative); Epithelial Cells Many HPF (Negative); Mucus Moderate (Negative); RBC >50 HPF (0-2)
== END 2022-01-19 16:37 | disposition home or self-care (01) ==
LOC: LBN 16:36
PROVIDERS: PCP Nurse Practitioner; Visit Provider Physician Assistant
DX: R39.89 Other symptoms and signs involving the genitourinary system (principal)
CPT/HCPCS: 81003; 81015

== ENCOUNTER 2022-02-01 20:49 | Outpatient (REF) | payer SELFPAY ==
[2022-02-03 14:24] LABS: Chlamydia Result Negative (Negative); GC Result Negative (Negative)
== END 2022-02-01 20:50 | disposition home or self-care (01) ==
LOC: LBN 20:49
PROVIDERS: PCP Nurse Practitioner; Visit Provider Nurse Practitioner Family
DX: N89.8 Other specified noninflammatory disorders of vagina (principal)
CPT/HCPCS: 87491; 87591

== ENCOUNTER 2022-04-05 14:51 | Outpatient (REF) | payer SELFPAY ==
[2022-04-07 15:58] LABS: Chlamydia Result Negative (Negative); GC Result Negative (Negative)
== END 2022-04-05 14:52 | disposition home or self-care (01) ==
LOC: LBN 14:51
PROVIDERS: PCP Nurse Practitioner; Visit Provider Physician Assistant
DX: B37.3 Candidiasis of vulva and vagina (principal); Z11.3 Encounter for screening for infections with a predominantly sexual mode of transmission
CPT/HCPCS: 87491; 87591; 87480; 87510; 87660

== ENCOUNTER 2022-05-13 13:32 | Outpatient (REF) | payer SELFPAY | END 2022-05-13 13:33 | disposition home or self-care (01) | LOC: LBN 13:32 | PROVIDERS: PCP Nurse Practitioner; Visit Provider Nurse Practitioner Family | DX: B37.31 Acute candidiasis of vulva and vagina (principal) | CPT/HCPCS: 87480; 87510; 87660 ==

== ENCOUNTER 2022-10-14 21:10 | Outpatient (REF) | payer BC, SELFPAY ==
[2022-10-14 21:31] LABS: Bacteria Rare HPF (Negative); C & S Indicated? C&S Done As Ordered; Casts Negative LPF (Negative); Crystals Negative HPF (Negative); Epithelial Cells Rare HPF (Negative); Mucus Negative (Negative); RBC Negative HPF (0-2)
== END 2022-10-14 21:11 | disposition home or self-care (01) ==
LOC: LBN 21:10
PROVIDERS: PCP Nurse Practitioner Family; Visit Provider Physician Assistant Medical
DX: R30.0 Dysuria (principal)
CPT/HCPCS: 81015; 87086

== ENCOUNTER 2022-10-25 16:21 | Outpatient (REF) | payer BC, SELFPAY ==
[2022-10-27 14:34] LABS: Chlamydia Result Negative (Negative); GC Result Negative (Negative)
== END 2022-10-25 16:22 | disposition home or self-care (01) ==
LOC: LBN 16:21
PROVIDERS: PCP Nurse Practitioner Family; Visit Provider Nurse Practitioner Family
DX: Z11.3 Encounter for screening for infections with a predominantly sexual mode of transmission (principal)
CPT/HCPCS: 87491; 87591

== ENCOUNTER 2022-11-11 12:12 | Outpatient (REF) | payer BC, SELFPAY | END 2022-11-11 12:13 | disposition home or self-care (01) | LOC: LBN 12:12 | PROVIDERS: PCP Nurse Practitioner Family; Visit Provider Nurse Practitioner Family | DX: N76.0 Acute vaginitis (principal); R30.0 Dysuria | CPT/HCPCS: 87480; 87510; 87660 ==

== ENCOUNTER 2022-11-22 14:00 | Outpatient (REF) | payer BC, SELFPAY ==
--- NOTE | 2022-11-22 13:30 | PAPFT_PTH ---
PATIENT: Pawel Ball LOC: [facility] U#:[id number] AGE/SX: 27/F ROOM: RE11/22/[address]: Alina Gee NP : 1995 BED: DIS: 11/22/2022 SPEC #: [id number] RECD: 11/22/22 18:21 STATUS: [place] REQ #: [id number] FARIBA: 11/22/22 13:[address]: Miranda Rajan DEPT: [facility] Cytology RECD BY: Marina Blanco ENTERED: 11/22/22 18:21 SP TYPE: PAPFT OTHR DR: Mahnaz Ramos NP Tissues: 1 - CX/ENDOCX FOR PAP SMEARS Procedures: PAP THIN PREP/UVM Screening Comments: [id number] (CHLAMYDIA/GC)
[2022-11-23 14:22] LABS: Chlamydia Result Negative (Negative); GC Result Negative (Negative)
== END 2022-11-22 14:01 | disposition home or self-care (01) ==
LOC: LBN 14:00
PROVIDERS: Obstetrics & Gynecology; PCP Nurse Practitioner Family; Visit Provider Nurse Practitioner Women's Health
DX: Z11.3 Encounter for screening for infections with a predominantly sexual mode of transmission (principal); Z12.4 Encounter for screening for malignant neoplasm of cervix
CPT/HCPCS: 87491; 87591; 88142

== ENCOUNTER 2022-12-31 18:11 | Outpatient (REF) | payer BC, SELFPAY | END 2022-12-31 18:12 | disposition home or self-care (01) | LOC: LBN 18:11 | PROVIDERS: PCP Nurse Practitioner Family; Visit Provider Nurse Practitioner Family | DX: R30.0 Dysuria (principal); R87.89 Other abnormal findings in specimens from female genital organs; N89.8 Other specified noninflammatory disorders of vagina | CPT/HCPCS: 87086; 87480; 87510; 87660 ==

== ENCOUNTER 2023-01-25 15:47 | Outpatient (REF) | payer BC, SELFPAY | END 2023-01-25 15:48 | disposition home or self-care (01) | LOC: LBN 15:47 | PROVIDERS: PCP Nurse Practitioner Family; Visit Provider Nurse Practitioner Family | DX: N76.0 Acute vaginitis (principal) | CPT/HCPCS: 87480; 87510; 87660 ==

== ENCOUNTER 2023-02-02 11:49 | Outpatient (REF) | payer BC, SELFPAY ==
[2023-02-03 13:48] LABS: Chlamydia Result Negative (Negative); GC Result Negative (Negative)
== END 2023-02-02 11:50 | disposition home or self-care (01) ==
LOC: LBN 11:49
PROVIDERS: PCP Nurse Practitioner Family; Visit Provider Nurse Practitioner Women's Health
DX: Z11.3 Encounter for screening for infections with a predominantly sexual mode of transmission (principal)
CPT/HCPCS: 87491; 87591

== ENCOUNTER 2023-04-11 22:01 | Outpatient (REF) | payer BC, SELFPAY ==
[2023-04-13 14:16] LABS: Chlamydia Result Negative (Negative); GC Result Negative (Negative)
== END 2023-04-11 22:02 | disposition home or self-care (01) ==
LOC: LBN 22:01
PROVIDERS: PCP Nurse Practitioner Family; Visit Provider Nurse Practitioner Family
DX: Z11.3 Encounter for screening for infections with a predominantly sexual mode of transmission (principal); Z11.59 Encounter for screening for other viral diseases; Z11.4 Encounter for screening for human immunodeficiency virus [HIV]
CPT/HCPCS: 87491; 87591

== ENCOUNTER 2023-06-08 03:07 | Outpatient (CLI) | payer BC, SELFPAY ==
[2023-06-09 09:48] LABS: Hepatitis C Ab w Rflx HCV PCR Negative (Negative)
[2023-06-09 10:02] LABS: HIV-1/2 Ag & Ab Screen Negative (Negative)
[2023-06-09 10:43] LABS: Syphilis Serology (RPR) Negative (Negative)
[2023-06-10 10:33] LABS: HSV Type 1 Ab, IgG Negative (Negative); HSV Type 2 Ab, IgG Negative (Negative)
== END 2023-06-08 03:08 | disposition home or self-care (01) ==
LOC: LBO 03:07
PROVIDERS: PCP Nurse Practitioner Family; Visit Provider Nurse Practitioner Family
DX: Z11.3 Encounter for screening for infections with a predominantly sexual mode of transmission (principal)
CPT/HCPCS: 36415; 86803; 87389; 86592; 86695; 86696

== ENCOUNTER 2023-06-29 19:05 | Outpatient (REF) | payer BC, SELFPAY ==
[2023-06-29 21:06] LABS: Bilirubin Negative (Negative); Blood Trace-intact (Negative); Clarity Sl Cloudy (Clear); Glucose Negative (Negative); Ketones Negative (Negative); Leukocyte Esterase Small (Negative); Nitrite Negative (Negative); Urobilinogen 0.2 mg/dL (Up to 0.2)
[2023-06-29 21:15] LABS: Bacteria Rare HPF (Negative); C & S Indicated? C&S Done As Ordered; Casts Negative LPF (Negative); Crystals Negative HPF (Negative); Epithelial Cells Negative HPF (Negative); Mucus Trace (Negative); RBC Negative HPF (0-2)
== END 2023-06-29 19:06 | disposition home or self-care (01) ==
LOC: LBN 19:05
PROVIDERS: PCP Nurse Practitioner Family; Visit Provider Physician Assistant
DX: N39.0 Urinary tract infection, site not specified (principal); R39.89 Other symptoms and signs involving the genitourinary system
CPT/HCPCS: 81003; 81015; 87086

== ENCOUNTER 2023-07-18 10:44 | Outpatient (REF) | payer BC, SELFPAY ==
[2023-07-19 12:32] LABS: Chlamydia Result Negative (Negative); GC Result Negative (Negative)
== END 2023-07-18 10:45 | disposition home or self-care (01) ==
LOC: LBN 10:44
PROVIDERS: PCP Nurse Practitioner Family; Visit Provider Nurse Practitioner Family
DX: R30.0 Dysuria (principal); N89.8 Other specified noninflammatory disorders of vagina; N94.89 Other specified conditions associated with female genital organs and menstrual cycle
CPT/HCPCS: 87491; 87591; 87480; 87510; 87660

== ENCOUNTER 2023-09-15 22:36 | Outpatient (REF) | payer BC, SELFPAY | END 2023-09-15 22:37 | disposition home or self-care (01) | LOC: LBN 22:36 | PROVIDERS: PCP Nurse Practitioner Family; Visit Provider Nurse Practitioner Family | DX: N76.0 Acute vaginitis (principal) | CPT/HCPCS: 87480; 87510; 87660 ==

== ENCOUNTER 2024-03-08 19:01 | Outpatient (REF) | payer BC, SELFPAY ==
--- OUTSIDE RECORDS SUMMARY | 2024-03-08 19:07 | XMS_ITS | Continuity of Care Document ---
Author Name [facility] Organization [facility] Care Team Providers Care Canteen Manager Name Role Phone [facility] Unavailable Unavailable Social History Combined list of available smoking, tobacco, and other social history from Department of Defense and Veterans Affairs facilities. Social History Type Response Date Comment Sourc e This section is an empty social history section. [facility]
--- OUTSIDE RECORDS SUMMARY | 2024-03-08 19:07 | XMS_ITS | Encounter Summary ---
Author Organization [facility] Address [address] [place] [address] Care Team Providers Care Foam Cutting Supervisor Name Role Phone Carlotta Schaefer MD Primary Care Provider [phone] Encounter Details Date Type Department Care Team (Late st Contact Info) Description 02/02/2023 Lab Requisition [facility] Pathology & Laboratory Medicine - [address] [address] Outr Resulting Lab, Provider Social History Tobacco Use Types Packs/Day Years Used Date Smoking Tobacco: Never Assessed Sex and Gender Information Value Date Recorded Sex Assigned at Not on file Gender Identity Not on file Sexual Orientation Not on file documented as of this encounter Plan of Treatment Not on file documented as of this encounter Procedures Procedure Name Priority Date/Time Associated Diagnosis Comments CHLAMYDIA/N. GONORRHOEAE AMPLIFIED NUCLEIC ACID Routine 02/02/2023 10:45 EDT documented in this encounter Results * CHLAMYDIA/N. GONORRHOEAE AMPLIFIED RNA (02/02/2023 10:45 EDT) Neisseria gonorrhoeae Result Negative Negative 02/03/2023 13:[address] [facility] Chlamydia trachomatis Result Negative Negative 02/03/2023 13:[address] [facility] Swab ENTIRE ENDOCERVIX / Unknown 02/02/2023 10:45 EDT 02/02/2023 17:52 EDT Provider Outr Resulting Lab MICROBIOLOGY - GENERAL ORDERABLES [facility] [address] [place] [address] documented in this encounter Visit Diagnoses Not on filedocumented in this encounter Care Teams Foam Cutting Supervisor Relationship Specialty Start Date End Date Carlotta Schaefer MD [address] [place] [address] PCP - General 05/31/15 documented as of this encounter
--- OUTSIDE RECORDS SUMMARY | 2024-03-08 19:07 | XMS_ITS | Referral Summary ---
Author Organization [facility] Address [address] [place] [address] Care Team Providers Care Java Programmer Analyst Name Role Phone Carlotta Schaefer MD Primary Care Provider [phone] Social History Tobacco Use Types Packs/Day Years Used Date Smoking Tobacco: Never Assessed Sex and Gender Information Value Date Recorded Sex Assigned at Not on file Gender Identity Not on file Sexual Orientation Not on file Plan of Treatment Not on file Procedures Procedure Name Priority Date/Time Associated Diagnosis Comments HEPATITIS C AB W REFLEX TO HCV RNA BY PCR Routine 06/08/2023 9:35 EST from Last 3 Months or Most Recently Relevant to Health Maintenance Results * HEPATITIS C AB W REFLEX TO HCV RNA BY PCR (06/08/2023 9:35 EST) Hep C Antibody Negative Negative 06/09/2023 9:43 EST [facility] Blood VENOUS BLOOD / Unknown 06/08/2023 9:35 EST 06/08/2023 17:28 EST Provider Outr Resulting Lab CHEMISTRY & BLOOD GAS ORDERABLES [facility] [address] [place] [address] from Last 3 Months or Most Recently Relevant to Health Maintenance Care Teams Java Programmer Analyst Relationship Specialty Start Date End Date Carlotta cShaefer MD [address] [place] [address] PCP - General 05/31/15
--- OUTSIDE RECORDS SUMMARY | 2024-03-08 19:07 | XMS_ITS | Encounter Summary ---
Author Organization [facility] Address [address] [place] [address] Care Team Providers Care Material Control Associate Name Role Phone Carlotta Schaefer MD Primary Care Provider [phone] Encounter Details Date Type Department Care Team (Late st Contact Info) Description 11/22/2022 Lab Requisition [facility] Pathology & Laboratory Medicine - [address] [address] Alina Gee, KETTLE ROOM HELPER [address] [place] [address] Encounter for other general examination Social History Tobacco Use Types Packs/Day Years Used Date Smoking Tobacco: Never Assessed Sex and Gender Information Value Date Recorded Sex Assigned at Not on file Gender Identity Not on file Sexual Orientation Not on file documented as of this encounter Plan of Treatment Not on file documented as of this encounter Procedures Procedure Name Priority Date/Time Associated Diagnosis Comments PAP TEST Today 11/22/2022 13:30 EDT Encounter for other general examination CHLAMYDIA/N. GONORRHOEAE AMPLIFIED NUCLEIC ACID, THINPREP Today 11/22/2022 13:30 EDT documented in this encounter Results * PAP TEST (11/22/2022 13:30 EDT) Specimens A. Cervix and/or Endocervix , ThinPrep Imaging System with Manual Evaluation 12/02/2022 14:58 EDT [facility] Specimen Adequacy Satisfactory for Evaluation - transformation zone component present 12/02/2022 14:58 EDT [facility] General Categorization Negative for intraepithelial lesion or malignancy 12/02/2022 14:58 EDT [facility] Descriptive Diagnosis Reactive cellular changes associated with inflammation present (includes repair). 12/02/2022 14:58 EDT [facility] Attestation . 12/02/2022 14:58 EDT [facility] at 1458 Clinical History See below 12/03/19 14:58 EDT [facility] Performing Lab [facility] 12/02/2022 14:58 EDT [facility] Scanned Images 12/02/2022 14:58 EDT [facility] Papanicolaou smear specimen (specimen) CERVIX UTERI STRUCTURE / Unknown 11/22/2022 13:30 EDT 11/23/2022 11:53 EDT Alina Gee KETTLE ROOM HELPER PATHOLOGY ORDERAB LES Performing Organization Address City/[facility]/ZIP Co de Phone Number [facility] [address] [place] [address] * CHLAMYDIA/N. GONORRHOEAE AMPLIFIED RNA, THINPREP (11/22/2022 13:30 EDT) Neisseria gonorrhoeae Result Negative Negative 11/23/2022 14:17 EDT [facility] Chlamydia trachomatis Result Negative Negative 11/23/2022 14:17 EDT [facility] Papanicolaou smear specimen (specimen) CERVIX UTERI STRUCTURE / Unknown 11/22/2022 13:30 EDT 11/23/2022 8:31 EDT Alina Gee KETTLE ROOM HELPER MICROBIOLOGY - GE NERAL ORDERABLES Performing Organization Address City/[facility]/ZIP Co de Phone Number [facility] [address] [place] [address] documented in this encounter Visit Diagnoses Diagnosis Encounter for other general examination documented in this encounter Care Teams Material Control Associate Relationship Specialty Start Date End Date Carlotta Schaefer MD [address] [place] [address] PCP - General 05/31/15 documented as of this encounter
--- OUTSIDE RECORDS SUMMARY | 2024-03-08 19:07 | XMS_ITS | Clinical Summary ---
Author Organization [facility] Address [address] [place] [address] Care Team Providers Care Propeller Tester Name Role Phone Carlotta Schaefer MD Primary Care Provider [phone] Social History Tobacco Use Types Packs/Day Years Used Date Smoking Tobacco: Never Assessed Sex and Gender Information Value Date Recorded Sex Assigned at Not on file Gender Identity Not on file Sexual Orientation Not on file Plan of Treatment Health Maintenance Due Date Last Done Comments Hepatitis B Vaccine (1 of 3 - 19+ 3-dose series) 05/04 COVID-19 Vaccine ( season) 2023 Hepatitis C Screen Completed 06/08/2023 Procedures Procedure Name Priority Date/Time Associated Diagnosis Comments HEPATITIS C AB W REFLEX TO HCV RNA BY PCR Routine 06/08/2023 9:35 EST from Last 3 Months or Most Recently Relevant to Health Maintenance Results * HEPATITIS C AB W REFLEX TO HCV RNA BY PCR (06/08/2023 9:35 EST) Hep C Antibody Negative Negative 06/09/2023 9:43 EST [facility] Blood VENOUS BLOOD / Unknown 06/08/2023 9:35 EST 06/08/2023 17:28 EST Provider Outr Resulting Lab CHEMISTRY & BLOOD GAS ORDERABLES [facility] [address] [place] [address] from Last 3 Months or Most Recently Relevant to Health Maintenance Care Teams Propeller Tester Relationship Specialty Start Date End Date Carlotta Schaefer MD [address] [place] [address] [facility] - General 05/31/15
--- OUTSIDE RECORDS SUMMARY | 2024-03-08 19:07 | XMS_ITS | Encounter Summary ---
Author Organization [facility] Address [address] [place] [address] Care Team Providers Care Collections Assistant Name Role Phone Carlotta Schaefer MD Primary Care Provider [phone] Encounter Details Date Type Department Care Team (Late st Contact Info) Description 04/12/[address] [facility] Pathology & Laboratory Medicine - [address] [address] Outr Resulting Lab, Provider Social History Tobacco [...] Comments CHLAMYDIA/N. GONORRHOEAE AMPLIFIED NUCLEIC ACID Routine 04/11/2023 14:00 EDT documented in this encounter Results * CHLAMYDIA/N. GONORRHOEAE AMPLIFIED RNA (04/11/2023 14:00 EDT) Neisseria gonorrhoeae Result Negative Negative 04/13/2023 13:20 EDT [facility] Chlamydia trachomatis Result Negative Negative 04/13/2023 13:20 EDT [facility] Urine URINE / Unknown 04/11/2023 1 4:00 EDT 04/12/2023 19:29 EDT Narrative [facility] - 04/13/2023 13:20 EDT A first catch urine specimen is acceptable for detection of Gonorrhea and Chlamydia, but might detect up to 10% fewer infections when compared with vaginal and endocervical swab samples. Provider Outr Resulting Lab MICROBIOLOGY - GENERAL ORDERABLES [facility] [address] [place] [address] documented in this encounter Visit Diagnoses Not on filedocumented in this encounter Care Teams Collections Assistant Relationship Specialty Start Date End Date Carlotta Schaefer MD [address] [place] [address] PCP - General 05/31/15 documented as of this encounter
--- OUTSIDE RECORDS SUMMARY | 2024-03-08 19:07 | XMS_ITS | Clinical Summary ---
[place] [address] Care Team Providers Care Contractor Broomcorn Threshing Name Role Phone Mahnaz Ramos APRN Primary Care Provider [phone] Allergies No known active allergies Medications Medication Sig Dispensed Refills Start Date End Date Status amitriptyline (Elavil) 25 mg tablet Take 25 mg by mouth nightly. Patient unsure of dose Active Social History Tobacco Use Types Packs/Day Years Used Date Smoking Tobacco: Never Assessed Sex and Gender Information Value Date Recorded Sex Assigned at Not on file Gender Identity Not on file Sexual Orientation Not on file Plan of Treatment Health Maintenance Due Date Last Done Comments HIV screen 2014 Hepatitis C Screening 2014 Hepatitis B vaccine (0-59 yrs) (1) 2015 Tdap adult 2015 Tetanus vaccine 2015 PAP Smear 2017 Covid-19 Vaccine ( - 2022- season) 2023 Influenza (Flu) vaccine (1 o f 1 - Influenza standard series) 03/11/2024 Care Teams Contractor Broomcorn Threshing Relationship Specialty Start Date End Date Mahnaz Ramos APRN [facility] [address] [place], [place] [id number] PCP - General Internal Medicine 04/14/23
--- OUTSIDE RECORDS SUMMARY | 2024-03-08 19:07 | XMS_ITS | Encounter Summary ---
Author Organization [facility] Address [address] [place] [address] Care Team Providers Care Glass Ribbon Machine Operator Name Role Phone Carlotta Schaefer MD Primary Care Provider [phone] Encounter Details Date Type Department Care Team (Late st Contact Info) Description 06/08/2023 Lab Requisition [facility] Pathology & Laboratory Medicine - [address] [id number] Outr Resulting Lab, Provider Social History Tobacco [...] Procedure Name Priority Date/Time Associated Diagnosis Comments SYPHILIS SEROLOGY Routine 06/08/2023 9:35 EST HEPATITIS C AB W REFLEX TO HCV RNA BY PCR Routine 06/08/2023 9:35 EST HERPES SIMPLEX VIRUS (HSV) TYPE 1 & 2 AB, IGG Routine 06/08/2023 9:35 EST documented in this encounter Results * SYPHILIS SEROLOGY (06/08/2023 9:35 EST) Syphilis Serology Negative Negative 06/09/2023 10:38 EST [facility] Blood VENOUS BLOOD / Unknown 06/08/2023 9:35 EST 06/08/2023 17:28 EST Provider Outr Resulting Lab IMMUNOLOGY A ND SEROLOGY ORDERABLES Performing Organization Address City/[facility]/ZIP Co de Phone Number [facility] [address] [place] [address] * HEPATITIS C AB W REFLEX TO HCV RNA BY PCR (06/08/2023 9:35 EST) Hep C Antibody Negative Negative 06/09/2023 9:43 EST [facility] Blood VENOUS BLOOD / Unknown 06/08/2023 9:35 EST 06/08/2023 17:28 EST Provider Outr Resulting Lab CHEMISTRY & BLOOD GAS ORDERABLES Performing Organization Address [facility] Co de Phone Number [facility] [address] [place] [address] * HERPES SIMPLEX VIRUS (HSV) TYPE 1 & 2 AB, IGG (06/08/2023 9:35 EST) HSV Type 1 Ab, IgG Negative Negative 06/10/2023 10:27 EST [facility] Comment: No detectable antibodies to HSV 1 were found. A negative result generally indicates that the patient has not been infected, but does not always rule out acute HSV infection. If clinical exposure to HSV is suspected despite a negative finding a second sample should be collected and tested no less than 4-6 weeks later. HSV Type 2 Ab, IgG Negative Negative 06/10/2023 10:27 EST [facility] Comment: No detectable antibodies to HSV 2 were found. A negative result generally indicates that the patient has not been infected, but does not always rule out acute HSV infection. If clinical exposure to HSV is suspected despite a negative finding a second sample should be collected and tested no less than 4-6 weeks later. Blood VENOUS BLOOD / Unknown 06/08/2023 9:35 EST 06/08/2023 17:28 EST Provider Outr Resulting Lab IMMUNOLOGY A ND SEROLOGY ORDERABLES Performing Organization Address City/[facility] Co de Phone Number [facility] [address] [place] [address] documented in this encounter Visit Diagnoses Not on filedocumented in this encounter Care Teams Glass Ribbon Machine Operator Relationship Specialty Start Date End Date Carlotta Schaefer MD [address] [place] [phone] PCP - General 05/31/15 documented as of this encounter
--- OUTSIDE RECORDS SUMMARY | 2024-03-08 19:07 | XMS_ITS | Encounter Summary ---
Author Organization [facility] [place] [address] [place] [address] Care Team Providers Care Specialist Wound Care Name Role Phone Mahnaz Ramos APRN Primary Care Provider [phone] Reason for Referral * Consultation (Routine) - Authorized Specialty Diagnoses / Procedures Referred By Yesy crump Referred To Contact Dermatology Diagnoses Melanocytic nevus, unspecified location Mahnaz Ramos APRN [address] [place] [address] [facility] [address] [place] [address] Referral ID Status Reason Start Date Expiration Date Visits Requested Visits Authorized [id number] Authorized Consult, Test & Treat PCP Updated and/or Approved 04/14/2023 04/13/2024 6 6 Encounter Details Date Type Department Care Team (Late st Contact Info) Description 04/14/2023 Transcribe Orders eDH Incoming Referrals [phone] Mahnaz Ramos APRN [address] [place], [place] [id number] Melanocytic nevus, unspecified location Social History Tobacco Use Types Packs/Day Years Used Date Smoking Tobacco: Never Assessed Sex and Gender Information Value Date Recorded Sex Assigned at Not on file Gender Identity Not on file Sexual Orientation Not on file documented as of this encounter Plan of Treatment Scheduled Referrals Name Type Priority Associated Diagnoses Orde r Schedule Referral to Dermatology Outpatient Referral Routine Melanocytic nevus, unspecified location Ordered: 04/14/2023 documented as of this encounter Visit Diagnoses Diagnosis Melanocytic nevus, unspecified location documented in this encounter Care Teams Specialist Wound Care Relationship Specialty Start Date End Date Rachel, Mahnaz Rush APRN [address] [place] [address] PCP - General Internal Medicine 04/14/23 documented as of this encounter
--- OUTSIDE RECORDS SUMMARY | 2024-03-08 19:07 | XMS_ITS | Encounter Summary ---
Author Organization [facility] Address [address] [place] [address] Care Team Providers Care Echo Tech Name Role Phone Carlotta Schaefer MD Primary Care Provider Encounter Details Date Type Department Care Team (Late st Contact Info) Description 07/18/2023 Lab Requisition [facility] Pathology & Laboratory Medicine - [address] [address] Outr Resulting Lab, Provider Social History Tobacco [...] Comments CHLAMYDIA/N. GONORRHOEAE AMPLIFIED NUCLEIC ACID Routine 07/18/2023 11:15 EST documented in this encounter Results * CHLAMYDIA/N. GONORRHOEAE AMPLIFIED RNA (07/18/2023 11:15 EST) Neisseria gonorrhoeae Result Negative Negative 07/19/2023 12:27 EST [facility] Chlamydia trachomatis Result Negative Negative 07/19/2023 12:27 EST [facility] Urine URINE / Unknown 07/18/2023 1 1:15 EST 07/18/2023 23:08 EST Narrative [facility] - 07/19/2023 12:27 EST A first catch urine specimen is acceptable for detection of Gonorrhea and Chlamydia, but might detect up to 10% fewer infections when compared with vaginal and endocervical swab samples. Provider Outr Resulting Lab MICROBIOLOGY - GENERAL ORDERABLES [facility] [address] [place] [address] documented in this encounter Visit Diagnoses Not on filedocumented in this encounter Care Teams Echo Tech Relationship Specialty Start Date End Date Carlotta Schaefer MD [address] [place] [address] PCP - General 05/31/15 documented as of this encounter
--- OUTSIDE RECORDS SUMMARY | 2024-03-08 19:07 | XMS_ITS | Encounter Summary ---
Author Organization [facility] Address [address] [place] [address] Care Team Providers Care Optical Goods Worker Name Role Phone Carlotta Schaefer MD Primary Care Provider [phone] Encounter Details Date Type Department Care Team (Late st Contact Info) Description 06/08/2023 Lab Requisition [facility] Pathology & Laboratory Medicine - [address] [address] Outr Resulting Lab, Provider Social History Tobacco [...] Procedure Name Priority Date/Time Associated Diagnosis Comments HIV 1/2 ANTIGEN AND ANTIBODY, 4TH GENERATION Routine 06/08/2023 9:35 EST documented in this encounter Results * HIV 1/2 ANTIGEN AND ANTIBODY, 4TH GENERATION (06/08/2023 9:35 EST) HIV 1 and 2 Antibody/p24 Antigen, 4th Generation Negative Negative 06/09/2023 9:58 EST [facility] Comment:If acute HIV-1 infec tion is suspected in a high risk patient, submit plasma specimen for HIV-1 RNA quantitation test. Blood VENOUS BLOOD / Unknown 06/08/2023 9:35 EST 06/08/2023 17:28 EST Narrative [facility] - 06/09/2023 9:58 EST Fourth Generation assay performed on the Siemens [employer] XPT. Provider Outr Resulting Lab IMMUNOLOGY A ND SEROLOGY ORDERABLES [facility] [address] [place] [address] documented in this encounter Visit Diagnoses Not on filedocumented in this encounter Care Teams Optical Goods Worker Relationship Specialty Start Date End Date Carlotta Schaefer MD [address] [place] [phone] PCP - General 05/31/15 documented as of this encounter
--- OUTSIDE RECORDS SUMMARY | 2024-03-08 19:07 | XMS_ITS | Encounter Summary ---
[place] [address] Care Team Providers Care Event Marketing Specialist Name Role Phone Mahnaz Ramos APRN Primary Care Provider [phone] Encounter Details Date Type Department Care Team (Latest Contact Info) Description 06/23/2023 Travel Social History Tobacco Use Types Packs/Day Years Used Date Smoking Tobacco: Never Assessed Sex and Gender Information Value Date Recorded Sex Assigned at Not on file Gender Identity Not on file Sexual Orientation Not on file documented as of this encounter Plan of Treatment Not on file documented as of this encounter Visit Diagnoses Not on filedocumented in this encounter Care Teams Event Marketing Specialist Relationship Specialty Start Date End Date Mahnaz Ramos APRN [address] [place] [address] PCP - General Internal Medicine 04/14/23 documented as of this encounter
--- OUTSIDE RECORDS SUMMARY | 2024-03-08 19:07 | XMS_ITS | Encounter Summary ---
[place] [address] Care Team Providers Care Bead Worker Sewing Name Role Phone Mahnaz Ramos APRN Primary Care Provider [phone] Reason for Referral * Consultation (Routine) - Authorized Specialty Diagnoses / Procedures Referred By Yesy crump Referred To Contact Plastic Surgery Diagnoses Dermal nevus Patt Ho MD [facility] [address] TAHIRA [place] [address] [facility] [address] [place] [phone] Referral ID Status Reason Start Date Expiration Date Visits Requested Visits Authorized [id number] Authorized Consult, Test & Treat 06/26/2023 06/25/2024 1 1 Reason for Visit * Consultation (Routine) - Authorized Specialty Diagnoses / Procedures Referred By Yesy crump Referred To Contact Dermatology Diagnoses Melanocytic nevus, unspecified location Mahnaz Ramos APRN [address] [place] [address] [facility] [address] [place] [address] Referral ID Status Reason Start Date Expiration Date Visits Requested Visits Authorized [id number] Authorized Consult, Test & Treat PCP Updated and/or Approved 04/14/2023 04/13/2024 6 6 Encounter Details Date Type Department Care Team (Late st Contact Info) Description 06/23/2023 2:20 PM EST Office Visit Dermatology at [address] [place] [address] Patt Ho MD [facility] DR TAHIRA LE[place]ITT[place] [address] Dermal nevus Social History Tobacco Use Types Packs/Day Years Used Date Smoking Tobacco: Never Assessed Sex and Gender Information Value Date Recorded Sex Assigned at Not on file Gender Identity Not on file Sexual Orientation Not on file documented as of this encounter Progress Notes * Patt Ho MD - 06/23/2023 2:20 PM EST Images from the original note were not included. DEPARTMENT OF DERMATOLOGY Medical Dermatology Clinic Note Provider: Patt Ho MD Patient's preferred name Pawel Preferred contact method for results [x]Phone []myD-H []Letter Detailed phone message OK? yes Are there any other people with whom we may discuss your care? Past Medical History Date, location, treatment Melanoma No Dysplastic nevi No SCC No BCC No AKs No UV Exposure & Protection Other relevant past medical history Family History Details Melanoma No NMSC No Other relevant family history Social History Occupation: Hobbies: Other: Pre-Procedure Questions Details Allergy to lidocaine, epinephrine, Dermabond, chlorhexidine, or adhesives No Bleeding disorder or blood thinners No Implanted devices (Pacemaker, defibrillator, deep brain stimulator, cochlear implant) No History of Present Illness: Pawel Ball is a 28 y.o. Patient is referred to the clinic at the request of Mahnaz Ramos for concerning moles located on the - one mole on left and right cheek - mostly cosmetic removal Review of Systems: General: Feeling well. Skin: No other skin concerns. Medications: Reviewed in eD-H Allergies: Reviewed in eD-H Skin Examination: Focused skin examination of the face was normal with the exception of the findings below. Assessment/Plan - #. Dermal Nevus - [place], fleshy papule on the left cheek x1 (5mm) and right cheek x1 (5mm). - Discussed benign nature and provided reassurance. - Discussed limited removal options and residual scarring. - Refer to plastic surgery to discuss cosmetic removal Figure 1 Photo(s) taken and charted with patient's verbal consent. Other: N/A RTC: PRN []Note routed to soldering machine operator automatic []Recall placed in scheduling system []Appointment scheduled at checkout Scribe attestation: Nahum Glover RN has performed the documentation for this encounter in the presence of and acting as a scribe for Patt Ho MD. I performed the above scribed service and agree with the accuracy of the documentation in this encounter. Reviewed and signed by: Patt Ho MD Dermatology [facility] documented in this encounter Plan of Treatment Scheduled Referrals Name Type Priority Associated Diagnoses Orde r Schedule Referral to Plastic Surgery Outpatient Referral Routine Dermal nevus Ordered: 06/26/2023 documented as of this encounter Visit Diagnoses Diagnosis Dermal nevus Benign neoplasm of skin, site unspecified documented in this encounter Care Teams Bead Worker Sewing Relationship Specialty Start Date End Date Rachel, Mahnaz Rush, LUMBER CUTTER [address] [place] [address] PCP - General Internal Medicine 04/14/23 documented as of this encounter
--- OUTSIDE RECORDS SUMMARY | 2024-03-08 19:08 | XMS_ITS | Encounter Summary ---
Author Organization [facility] Address [address] [place] [address] Care Team Providers Care Carpet Installer Helper Name Role Phone Carlotta Schaefer MD Primary Care Provider [phone] Encounter Details Date Type Department Care Team (Late st Contact Info) Description 02/02/2022 Lab Requisition [facility] Pathology & Laboratory Medicine - [address] [address] Outr Resulting Lab, Provider Social History Tobacco [...] Comments CHLAMYDIA/N. GONORRHOEAE AMPLIFIED NUCLEIC ACID Routine 02/01/2022 16:25 EDT documented in this encounter Results * CHLAMYDIA/N. GONORRHOEAE AMPLIFIED RNA (02/01/2022 16:25 EDT) Neisseria gonorrhoeae Result Negative Negative 02/03/2022 14:19 EDT [facility] Chlamydia trachomatis Result Negative Negative 02/03/2022 14:19 EDT [facility] Swab ENTIRE VAGINA / Unknown 02/01/2022 16:25 EDT 02/02/2022 17:22 EDT Provider Outr Resulting Lab MICROBIOLOGY - GENERAL ORDERABLES [facility] [address] [place] [address] documented in this encounter Visit Diagnoses Not on filedocumented in this encounter Care Teams Carpet Installer Helper Relationship Specialty Start Date End Date Carlotta Schaefer MD [address] [place] [address] PCP - General 05/31/15 documented as of this encounter
--- OUTSIDE RECORDS SUMMARY | 2024-03-08 19:08 | XMS_ITS | Encounter Summary ---
Author Organization [facility] Address [address] [place] [address] Care Team Providers Care Case Management Director Name Role Phone Carlotta Schaefer MD Primary Care Provider [phone] Encounter Details Date Type Department Care Team (Late st Contact Info) Description 11/17/2021 Lab Requisition [facility] Pathology & Laboratory Medicine - [address] [id number] Outr Resulting Lab, Provider Social History Tobacco [...] Comments CHLAMYDIA/N. GONORRHOEAE AMPLIFIED NUCLEIC ACID Routine 11/16/2021 18:20 EDT documented in this encounter Results * CHLAMYDIA/N. GONORRHOEAE AMPLIFIED RNA (11/16/2021 18:20 EDT) Neisseria gonorrhoeae Result Negative Negative 11/18/2021 14:54 EDT [facility] Chlamydia trachomatis Result Negative Negative 11/18/2021 14:54 EDT [facility] Swab ENTIRE WALL OF CERVIX / Unknown 11/16/2021 18:20 EDT 11/17/2021 17:47 EDT Provider Outr Resulting Lab MICROBIOLOGY - GENERAL ORDERABLES [facility] [address] [place] [address] documented in this encounter Visit Diagnoses Not on filedocumented in this encounter Care Teams Case Management Director Relationship Specialty Start Date End Date Carlotta Schaefer MD [address] [place] [address] PCP - General 05/31/15 documented as of this encounter
--- OUTSIDE RECORDS SUMMARY | 2024-03-08 19:08 | XMS_ITS | Encounter Summary ---
Author Organization [facility] Address [address] [place] [address] Care Team Providers Care Intel Recruiter Name Role Phone Carlotta Schaefer MD Primary Care Provider Encounter Details Date Type Department Care Team (Late st Contact Info) Description 08/08/2021 Lab Requisition [facility] Pathology & Laboratory Medicine - [address] [address] Outr Resulting Lab, Provider Social History Tobacco [...] Comments CHLAMYDIA/N. GONORRHOEAE AMPLIFIED NUCLEIC ACID Routine 08/07/2021 11:30 EST documented in this encounter Results * (ABNORMAL) CHLAMYDIA/N. GONORRHOEAE AMPLIFIED RNA (08/07/2021 11:30 EST) Neisseria gonorrhoeae Result Negative Negative 08/10/2021 15:30 EST [facility] Chlamydia trachomatis Result Positive(A) Negative 08/10/2021 15:30 EST [facility] Urine URINE / Unknown 08/07/2021 1 1:30 EST 08/09/2021 9:54 EST Narrative [facility] - 08/10/2021 15:30 EST A first catch urine specimen is acceptable for detection of Gonorrhea and Chlamydia, but might detect up to 10% fewer infections when compared with vaginal and endocervical swab samples. Provider Outr Resulting Lab MICROBIOLOGY - GENERAL ORDERABLES [facility] [address] [place] [address] documented in this encounter Visit Diagnoses Not on filedocumented in this encounter Care Teams Intel Recruiter Relationship Specialty Start Date End Date Carlotta Schaefer MD [address] [place] [phone] PCP - General 05/31/15 documented as of this encounter
--- OUTSIDE RECORDS SUMMARY | 2024-03-08 19:08 | XMS_ITS | Encounter Summary ---
Author Organization [facility] Address [address] [place] [address] Care Team Providers Care Door Frame Builder Name Role Phone Carlotta Schaefer MD Primary Care Provider [phone] Encounter Details Date Type Department Care Team (Late st Contact Info) Description 04/19/2019 Results Only [facility] [phone] Mikaela Alejandro, MARCIO [address] [place] [address] Social History Tobacco Use Types Packs/Day Years Used Date Smoking Tobacco: Never Assessed Sex and Gender Information Value Date Recorded Sex Assigned at Not on file Gender Identity Not on file Sexual Orientation Not on file documented as of this encounter Plan of Treatment Not on file documented as of this encounter Procedures Procedure Name Priority Date/Time Associated Diagnosis Comments PAP TEST- RESULT ONLY Routine 04/19/2019 0:00 EDT documented in this encounter Results * PAP TEST- RESULT ONLY (04/19/2019 0:00 EDT) Pathology Report: CYTOPATHOLOGY REPORT Reports generated via electronic interface contain original data; however they are lacking the format of the original report. Caution should be taken when reading/interpreti ng unformatted reports. Name: ? SHRUTI JORDAN ? Accession #: ? [id number] ? : ? 1995 (Age: 23) ??F ?Collect Date: ? 04/19/2019 ? Location: ? [facility] ? Receive Date: ? 04/23/2019 ? Provider: MIKAELA ALEJANDRO NP Copy to: ? Final Report SPECIMEN ADEQUACY ? Satisfactory for Evaluation - transformation zone component present GENERAL CATEGORIZATION ? Negative for Intraepithelial Lesion or Malignancy ?? Specimen/Source: ??Pap Test, Vagina/Cervix, ThinPrep Imaging System with manual evaluation Document reviewed and electronically signed by: ? Nayeli Yap, CT(ASCP) ? Report ??Date: 04/25/2019 09:04 HPV with Pap Test ? Date Ordered: ? 04/25/2019 ? Status: ?? Signed Out ?Date Complete: ? 04/26/2019 ? By: ??System Interface ? Date Reported: ? 04/26/2019 ? Interpretation RESULT: Negative for HPV. No E6 or E7 mRNA is detected from HPV types 16,18,31,33,35, 39,45,51,52,56,58, 59,66, and 68 by vice president research mediated amplification. Comments Document reviewed and electronically signed by: ? System Interface ? Report date: 04/26/2019 By the signature above, the attending physician certifies that he/she has personally conducted a gross and/or microscopic examination of the described specimens and rendered or confirmed the above diagnosis. End of Report [facility] 04/19/2019 04/23/2019 Mikaela Royalio ROCK CLIMBING INSTRUCTOR PATHOLOGY ORDERABLE S [facility] [address] [place] [address] documented in this encounter Visit Diagnoses Not on filedocumented in this encounter Care Teams Door Frame Builder Relationship Specialty Start Date End Date Carlotta Schaefer MD [address] [place] [address] PCP - General 05/31/15 documented as of this encounter
--- OUTSIDE RECORDS SUMMARY | 2024-03-08 19:08 | XMS_ITS | Encounter Summary ---
Author Organization [facility] Address [address] [place] [address] Care Team Providers Care Fine Arts Packer Name Role Phone Carlotta Schaefer MD Primary Care Provider [phone] Encounter Details Date Type Department Care Team (Late st Contact Info) Description 08/02/[address] [facility] Pathology & Laboratory Medicine - [address] [address] Unknown, ProviderMD Social History Tobacco Use Types Packs/Day Years [...] Comments CHLAMYDIA/N. GONORRHOEAE AMPLIFIED NUCLEIC ACID Routine 08/02/2019 10:00 EST documented in this encounter Results * CHLAMYDIA/N. GONORRHOEAE AMPLIFIED RNA (08/02/2019 10:00 EST) Neisseria gonorrhoeae Result Negative Negative 08/03/2019 14:25 EST [facility] Chlamydia trachomatis Result Negative Negative 08/03/2019 14:25 EST [facility] Urine URINE / Unknown 08/02/2019 1 0:00 EST 08/02/2019 21:09 EST Narrative [facility] - 08/03/2019 14:25 EST A first catch urine specimen is acceptable for detection of Gonorrhea and Chlamydia, but might detect up to 10% fewer infections when compared with vaginal and endocervical swab samples. Provider Unknown MICROBIOLOGY - RYANN WHITE ORDERABLES [facility] [address] [place] [address] documented in this encounter Visit Diagnoses Not on filedocumented in this encounter Care Teams Fine Arts Packer Relationship Specialty Start Date End Date Carlotta Schaefer MD [address] [place] [address] PCP - General 05/31/15 documented as of this encounter
--- OUTSIDE RECORDS SUMMARY | 2024-03-08 19:08 | XMS_ITS | Encounter Summary ---
Author Organization [facility] Address [address] [place] [address] Care Team Providers Care Residential Framing Carpenter Name Role Phone Carlotta Schaefer MD Primary Care Provider [phone] Encounter Details Date Type Department Care Team (Late st Contact Info) Description 03/31/2020 Lab Requisition [facility] Pathology & Laboratory Medicine - [address] [address] Outr Resulting Lab, Provider Social History Tobacco [...] Name Priority Date/Time Associated Diagnosis Comments HEPATITIS B SURFACE ANTIBODY Routine 03/31/2020 16:13 EDT documented in this encounter Results * HEPATITIS B SURFACE ANTIBODY (03/31/2020 16:13 EDT) Hep B Surface Ab, Quantitative >1,000.0 See Note mIU/mL 04/02/2020 10:49 EDT [facility] Comment: Reference Range for Hep B Surface Ab, Quant: Positive: >= 10.0 mIU/mL Negative: ??< 10.0 mIU/mL Patient is presumed to be immune to infection with Hepatitis B Virus. Hep B Surface Ab, Qualitative Positive See Note 04/02/2020 10:49 EDT [facility] Comment: Reference Range for Hep B Surface Ab, Qual: Unvaccinated: ??Negative Vaccinated: ??Positive Blood VENOUS BLOOD / Unknown 03/31/2020 16:13 EDT 04/01/2020 16:51 EDT Provider Outr Resulting Lab CHEMISTRY & BLOOD GAS ORDERABLES [facility] [address] [place] [address] documented in this encounter Visit Diagnoses Not on filedocumented in this encounter Care Teams Residential Framing Carpenter Relationship Specialty Start Date End Date Carlotta Schaefer MD [address] [place] [address] PCP - General 05/31/15 documented as of this encounter
--- OUTSIDE RECORDS SUMMARY | 2024-03-08 19:08 | XMS_ITS | Encounter Summary ---
Author Organization [facility] Address [address] [place] [address] Care Team Providers Care Sql Etl Developer Name Role Phone Carlotta Schaefer MD Primary Care Provider [phone] Encounter Details Date Type Department Care Team (Late st Contact Info) Description 03/31/2020 Lab Requisition [facility] Pathology & Laboratory Medicine - [address] [address] Outr Resulting Lab, Provider Social History Tobacco [...] Procedure Name Priority Date/Time Associated Diagnosis Comments QUANTIFERON TB GOLD PLUS Routine 03/31/2020 16:13 EDT documented in this encounter Results * QUANTIFERON TB GOLD PLUS (03/31/2020 16:13 EDT) Pathologist [facility] Quantiferon Interpretation Negative Negative 04/02/2020 14:25 EDT [facility] Comment: No interferon-gamma response to M. tuberculosis antigens was detected. ??Infection with M. tuberculosis is unlikely. A single negative result does not exclude infection with M. tuberculosis. ??In patients at high risk for M. tuberculosis infection, a second test should be considered in accordance with the 2017 ATS/IDSA/CDC Clinical Practice Guidelines for Diagnosis of Tuberculosis in Adults and Children. [Oliva BIANCHI et. al. Clin. Infect. Dis. 2017:64 (2) ??: 111-115]. Results were obtained with the Qiagen QuantiFERON TB Gold Plus TREASURE. TB1 Ag minus Nil 0.02 IU/ml 04/02/20 14:25 EDT [facility] TB2 Ag minus Nil 0.02 IU/mL 04/02/20 14:25 EDT [facility] Blood VENOUS BLOOD / Unknown 03/31/2020 16:13 EDT 04/01/2020 16:47 EDT Narrative [facility] - 04/02/2020 14:25 EDT Results were obtained with the Qiagen QuantiFERON-TB Gold Plus TREASURE. Provider Outr Resulting Lab CHEMISTRY & BLOOD GAS ORDERABLES [facility] [address] [place] [address] documented in this encounter Visit Diagnoses Not on filedocumented in this encounter Care Teams Sql Etl Developer Relationship Specialty Start Date End Date Carlotta Schaefer MD [address] [place] [address] PCP - General 05/31/15 documented as of this encounter
--- OUTSIDE RECORDS SUMMARY | 2024-03-08 19:08 | XMS_ITS | Encounter Summary ---
Author Organization [facility] Address [address] [place] [address] Care Team Providers Care Squirrel Worker Name Role Phone Carlotta Schaefer MD Primary Care Provider [phone] Encounter Details Date Type Department Care Team (Late st Contact Info) Description 04/14/2018 Results Only [facility] [phone] Julia Davis, [address] [place] [address] Social History Tobacco Use Types Packs/Day Years [...] Diagnosis Comments PAP TEST- RESULT ONLY Routine 04/14/2018 0:00 EDT documented in this encounter Results * PAP TEST- RESULT ONLY (04/14/2018 0:00 EDT) Pathology Report: CYTOPATHOLOGY REPORT Reports generated via electronic interface contain original data; however they are lacking the format of the original report. Caution should be taken when reading/interpreti ng unformatted reports. Name: ? SHRUTI JORDAN ? Accession #: ? [id number] : ? 1995 (Age: 22) ??F ?Collect Date: ? 04/14/2018 Location: ? [facility] ? Receive Date: ? 04/17/2018 Provider: ?JULIA DAVIS LENS ASSORTER Copy to: ?TOSHIA MOREL ANALYSIS TESTER ? Specimen/Source: ?Pap Test, Cervix, ThinPrep Imaging System with manual evaluation Last Menstrual Period: ? 03/30/18 Other: ? First Pap ? SPECIMEN ADEQUACY ? Satisfactory for Evaluation - transformation zone component present GENERAL CATEGORIZATION ? Negative for Intraepithelial Lesion or Malignancy ? Document reviewed and electronically signed by: ? ONIEL Thibodeaux(ASCP) ? Report Date: ??04/26/2018 08:34 End of Report [facility] 04/14/2018 04/17/2018 Julia Davis LENS ASSORTER PATHOLOGY ORDERABLES [facility] [address] [place] [address] documented in this encounter Visit Diagnoses Not on filedocumented in this encounter Care Teams Squirrel Worker Relationship Specialty Start Date End Date Carlotta Schaefer MD [address] [place] [address] PCP - General 05/31/15 documented as of this encounter
--- OUTSIDE RECORDS SUMMARY | 2024-03-08 19:08 | XMS_ITS | Encounter Summary ---
Author Organization [facility] Address [address] [place] [address] Care Team Providers Care Veterinary Technology Instructor Name Role Phone Carlotta Schaefer MD Primary Care Provider [phone] Encounter Details Date Type Department Care Team (Late st Contact Info) Description 10/26/2022 Lab Requisition [facility] Pathology & Laboratory Medicine - [address] [address] Outr Resulting Lab, Provider Social History Tobacco [...] Comments CHLAMYDIA/N. GONORRHOEAE AMPLIFIED NUCLEIC ACID Routine 10/25/2022 10:21 EDT documented in this encounter Results * CHLAMYDIA/N. GONORRHOEAE AMPLIFIED RNA (10/25/2022 10:21 EDT) Neisseria gonorrhoeae Result Negative Negative 10/27/2022 14:30 EDT [facility] Chlamydia trachomatis Result Negative Negative 10/27/2022 14:30 EDT [facility] Swab ENTIRE VAGINA / Unknown 10/25/2022 10:21 EDT 10/26/2022 19:45 EDT Provider Outr Resulting Lab MICROBIOLOGY - GENERAL ORDERABLES [facility] [address] [place] [address] documented in this encounter Visit Diagnoses Not on filedocumented in this encounter Care Teams Veterinary Technology Instructor Relationship Specialty Start Date End Date Carlotta Schaefer MD [address] [place] [address] PCP - General 05/31/15 documented as of this encounter
--- OUTSIDE RECORDS SUMMARY | 2024-03-08 19:08 | XMS_ITS | Encounter Summary ---
Author Organization [facility] Address [address] [place] [address] Care Team Providers Care Aviation Electrical Technician Name Role Phone Carlotta Schaefer MD Primary Care Provider [phone] Encounter Details Date Type Department Care Team (Late st Contact Info) Description 08/02/2019 Lab Requisition [facility] Pathology & Laboratory Medicine - [address] [address] Unknown, ProviderMD Social History Tobacco Use Types [...] 1/2 ANTIGEN AND ANTIBODY, 4TH GENERATION Routine 08/02/2019 10:19 EST documented in this encounter Results * HIV 1/2 ANTIGEN AND ANTIBODY, 4TH GENERATION (08/02/2019 10:19 EST) HIV 1 and 2 Antibody/p24 Antigen, 4th Generation Negative Negative 08/03/2019 9:56 EST [facility] Comment: If acute HIV-1 infection is suspected in a high risk ??patient, submit plasma specimen for HIV-1 RNA quantitation test. Fourth Generation assay performed on the Siemens Crzyfishaur. Blood VENOUS BLOOD / Unknown 08/02/2019 10:19 EST 08/02/2019 21:33 EST Provider Unknown IMMUNOLOGY AND SEROL LUIS ORDERABLES [facility] [address] [place] [address] documented in this encounter Visit Diagnoses Not on filedocumented in this encounter Care Teams Aviation Electrical Technician Relationship Specialty Start Date End Date Carlotta Schaefer MD [address] [place] [address] PCP - General 05/31/15 documented as of this encounter
--- OUTSIDE RECORDS SUMMARY | 2024-03-08 19:08 | XMS_ITS | Encounter Summary ---
Author Organization [facility] Address [address] [place] [address] Care Team Providers Care Facing End Trimmer Name Role Phone Carlotta Schaefer MD Primary Care Provider [phone] Encounter Details Date Type Department Care Team (Late st Contact Info) Description 12/28/2021 Lab Requisition [facility] Pathology & Laboratory Medicine - [address] [address] Outr Resulting Lab, Provider Social History Tobacco [...] Comments CHLAMYDIA/N. GONORRHOEAE AMPLIFIED NUCLEIC ACID Routine 12/28/2021 14:15 EDT documented in this encounter Results * CHLAMYDIA/N. GONORRHOEAE AMPLIFIED RNA (12/28/2021 14:15 EDT) Neisseria gonorrhoeae Result Negative Negative 12/31/2021 8:39 EDT [facility] Chlamydia trachomatis Result Negative Negative 12/31/2021 8:39 EDT [facility] Swab ENTIRE WALL OF CERVIX / Unknown 12/28/2021 14:15 EDT 12/29/2021 19:19 EDT Provider Outr Resulting Lab MICROBIOLOGY - GENERAL ORDERABLES [facility] [address] [place] [address] documented in this encounter Visit Diagnoses Not on filedocumented in this encounter Care Teams Facing End Trimmer Relationship Specialty Start Date End Date Carlotta Schaefer MD [address] [place] [address] PCP - General 05/31/15 documented as of this encounter
--- OUTSIDE RECORDS SUMMARY | 2024-03-08 19:08 | XMS_ITS | Encounter Summary ---
Author Organization [facility] Address [address] [place] [address] Care Team Providers Care Well Servicing Rig Operator Name Role Phone Carlotta Schaefer MD Primary Care Provider [phone] Encounter Details Date Type Department Care Team (Late st Contact Info) Description 08/02/2019 Lab Requisition [facility] Pathology & Laboratory Medicine - [address] [address] Unknown, ProviderMD Social History Tobacco Use Types [...] Date/Time Associated Diagnosis Comments SYPHILIS SEROLOGY Routine 08/02/2019 10: 19 EST documented in this encounter Results * SYPHILIS SEROLOGY (08/02/2019 10:19 EST) Syphilis Serology Negative Negative 08/03/2019 11:21 EST [facility] Blood VENOUS BLOOD / Unknown 08/02/2019 10:19 EST 08/02/2019 21:33 EST Provider Unknown IMMUNOLOGY AND SEROL OGY ORDERABLES [facility] [address] [place] [address] documented in this encounter Visit Diagnoses Not on filedocumented in this encounter Care Teams Well Servicing Rig Operator Relationship Specialty Start Date End Date Carlotta Schaefer MD [address] [place] [address] PCP - General 05/31/15 documented as of this encounter
--- OUTSIDE RECORDS SUMMARY | 2024-03-08 19:08 | XMS_ITS | Encounter Summary ---
Author Organization [facility] Address [address] [place] [address] Care Team Providers Care Nurse Practitioner Manager Name Role Phone Carlotta Schaefer MD Primary Care Provider [phone] Encounter Details Date Type Department Care Team (Late st Contact Info) Description 03/07/2021 Lab Requisition [facility] Pathology & Laboratory Medicine - [address] [address] Outr Resulting Lab, Provider Social History Tobacco [...] Comments CHLAMYDIA/N. GONORRHOEAE AMPLIFIED NUCLEIC ACID Routine 03/06/2021 19:00 EDT documented in this encounter Results * CHLAMYDIA/N. GONORRHOEAE AMPLIFIED RNA (03/06/2021 19:00 EDT) Neisseria gonorrhoeae Result Negative Negative 03/09/2021 15:12 EDT [facility] Chlamydia trachomatis Result Negative Negative 03/09/2021 15:12 EDT [facility] Swab ENTIRE WALL OF CERVIX / Unknown 03/06/2021 19:00 EDT 03/08/2021 17:35 EDT Provider Outr Resulting Lab MICROBIOLOGY - GENERAL ORDERABLES [facility] [address] [place] [address] documented in this encounter Visit Diagnoses Not on filedocumented in this encounter Care Teams Nurse Practitioner Manager Relationship Specialty Start Date End Date Carlotta Schaefer MD [address] [place] [address] PCP - General 05/31/15 documented as of this encounter
--- OUTSIDE RECORDS SUMMARY | 2024-03-08 19:08 | XMS_ITS | Encounter Summary ---
Author Organization [facility] Address [address] [place] [address] Care Team Providers Care Central Melt Specialist Name Role Phone Carlotta Schaefer MD Primary Care Provider [phone] Encounter Details Date Type Department Care Team (Late st Contact Info) Description 07/30/2021 Lab Requisition [facility] Pathology & Laboratory Medicine - [address] [address] Outr Resulting Lab, Provider Social History Tobacco [...] Comments CHLAMYDIA/N. GONORRHOEAE AMPLIFIED NUCLEIC ACID Routine 07/30/2021 10:30 EST documented in this encounter Results * (ABNORMAL) CHLAMYDIA/N. GONORRHOEAE AMPLIFIED RNA (07/30/2021 10:30 EST) Neisseria gonorrhoeae Result Negative Negative 07/31/2021 21:11 EST [facility] Chlamydia trachomatis Result Positive(A) Negative 07/31/2021 21:11 EST [facility] Urine URINE / Unknown 07/30/2021 1 0:30 EST 07/30/2021 18:40 EST Narrative [facility] - 07/31/2021 21:11 EST A first catch urine specimen is acceptable for detection of Gonorrhea and Chlamydia, but might detect up to 10% fewer infections when compared with vaginal and endocervical swab samples. Provider Outr Resulting Lab MICROBIOLOGY - GENERAL ORDERABLES [facility] [address] [place] [address] documented in this encounter Visit Diagnoses Not on filedocumented in this encounter Care Teams Central Melt Specialist Relationship Specialty Start Date End Date Carlotta Schaefer MD [address] [place] [id number] PCP - General 05/31/15 documented as of this encounter
--- OUTSIDE RECORDS SUMMARY | 2024-03-08 19:08 | XMS_ITS | Encounter Summary ---
Author Organization [facility] Address [address] [place] [address] Care Team Providers Care It Specialist Name Role Phone Carlotta Schaefer MD Primary Care Provider [phone] Encounter Details Date Type Department Care Team (Late st Contact Info) Description 04/06/2022 Lab Requisition [facility] Pathology & Laboratory Medicine - [address] [address] Outr Resulting Lab, Provider Social History Tobacco [...] Comments CHLAMYDIA/N. GONORRHOEAE AMPLIFIED NUCLEIC ACID Routine 04/05/2022 20:25 EDT documented in this encounter Results * CHLAMYDIA/N. GONORRHOEAE AMPLIFIED RNA (04/05/2022 20:25 EDT) Neisseria gonorrhoeae Result Negative Negative 04/07/2022 15:53 EDT [facility] Chlamydia trachomatis Result Negative Negative 04/07/2022 15:53 EDT [facility] Swab ENTIRE WALL OF CERVIX / Unknown 04/05/2022 20:25 EDT 04/06/2022 22:21 EDT Provider Outr Resulting Lab MICROBIOLOGY - GENERAL ORDERABLES [facility] [address] [place] [address] documented in this encounter Visit Diagnoses Not on filedocumented in this encounter Care Teams It Specialist Relationship Specialty Start Date End Date Carlotta Schaefer MD [address] [place] [address] PCP - General 05/31/15 documented as of this encounter
--- OUTSIDE RECORDS SUMMARY | 2024-03-08 19:08 | XMS_ITS | Encounter Summary ---
Author Organization [facility] Address [address] [place] [address] Care Team Providers Care Car Wash Manager Name Role Phone Carlotta Schaefer MD Primary Care Provider [phone] Encounter Details Date Type Department Care Team (Late st Contact Info) Description 05/05/2021 Lab Requisition [facility] Pathology & Laboratory Medicine - [address] [phone] Outr Resulting Lab, Provider Social History Tobacco [...] Comments CHLAMYDIA/N. GONORRHOEAE AMPLIFIED NUCLEIC ACID Routine 2021 12:00 EDT documented in this encounter Results * CHLAMYDIA/N. GONORRHOEAE AMPLIFIED RNA (2021 12:00 EDT) Neisseria gonorrhoeae Result Negative Negative 05/06/2021 15:20 EDT [facility] Chlamydia trachomatis Result Negative Negative 05/06/2021 15:20 EDT [facility] Swab ENTIRE WALL OF CERVIX / Unknown 2021 12:00 EDT 05/05/2021 22:42 EDT Provider Outr Resulting Lab MICROBIOLOGY - GENERAL ORDERABLES [facility] [address] [place] [address] documented in this encounter Visit Diagnoses Not on filedocumented in this encounter Care Teams Car Wash Manager Relationship Specialty Start Date End Date Carlotta Schaefer MD [address] [place] [address] PCP - General 05/31/15 documented as of this encounter
[2024-03-08 21:39] LABS: Bilirubin Negative (Negative); Blood Negative (Negative); Clarity Clear (Clear); Glucose Negative (Negative); Ketones Negative (Negative); Leukocyte Esterase Negative (Negative); Nitrite Negative (Negative); Specific Gravity >= 1.030 (1.005-1.025); Urobilinogen 0.2 mg/dL (Up to 0.2); pH 6.5 (5-8)
== END 2024-03-08 19:02 | disposition home or self-care (01) ==
LOC: LBN 19:01
PROVIDERS: PCP Nurse Practitioner Family; Visit Provider Nurse Practitioner Family
DX: N39.0 Urinary tract infection, site not specified (principal); R81 Glycosuria
CPT/HCPCS: 81003

== ENCOUNTER 2024-09-13 22:05 | Outpatient (REF) | payer BC, SELFPAY ==
[2024-09-13 21:19] LABS: Bilirubin Negative (Negative); Blood Negative (Negative); Clarity Clear (Clear); Glucose Negative (Negative); Ketones Negative (Negative); Leukocyte Esterase Negative (Negative); Nitrite Positive (Negative); Specific Gravity 1.025 (1.005-1.025); Urobilinogen 0.2 mg/dL (Up to 0.2); pH 5.5 (5-8)
[2024-09-13 21:33] LABS: Bacteria Rare HPF (Negative); C & S Indicated? No; Casts Negative LPF (Negative); Crystals Mod Calcium Oxalate HPF (Negative); Epithelial Cells Rare HPF (Negative); Mucus Negative (Negative); Other Cells Rare Transitional (Negative); RBC 0-2 HPF (0-2)
== END 2024-09-13 22:06 | disposition home or self-care (01) ==
LOC: NCHCN 22:05
PROVIDERS: PCP Nurse Practitioner Family; Visit Provider Nurse Practitioner Family
DX: R39.9 Unspecified symptoms and signs involving the genitourinary system (principal); N39.0 Urinary tract infection, site not specified
CPT/HCPCS: 81003; 81015

== ENCOUNTER 2024-09-17 04:18 | Outpatient (CLI) | payer BC, SELFPAY ==
[2024-09-17 14:08] LABS: HCT 38.6 % (36.0-46.0); HGB 12.8 g/dL (11.2-15.7); MCH 31.6 pg (27.0-33.0); MCHC 33.2 % (32.0-36.0); MCV 95 fL (80-95); MPV 12.3 fL (8.0-11.0); Platelet Count 185 10^3/uL (130-400); RBC 4.05 10^6/uL (3.93-5.22); RDW 12.4 % (11.7-14.6); RDW-SD 43.8 fL; WBC 8.58 10^3/uL (4.4-10.8)
[2024-09-17 14:14] LABS: Hemoglobin A1C 5.1 % (<5.7)
[2024-09-17 14:55] LABS: ALT 31 U/L (14-59); AST 22 U/L (15-37); Alkaline Phosphatase 79 U/L (46-116); Anion Gap 7.8 mmol/L (3-11); BUN 17 mg/dL (7-18); Bilirubin, Total 0.4 mg/dL (0.2-1.0); CO2 26.2 mmol/L (21.0-32.0); Calcium 9.1 mg/dL (8.5-10.1); Calculated LDL 79 mg/dL (<100); Chloride 105 mmol/L (98-107); Cholesterol 155 mg/dL (<200); Glucose 72 mg/dL (74-106); HDL Cholesterol 69 mg/dL (>or=50); Potassium 5.1 mmol/L (3.5-5.1); Sodium 139 mmol/L (136-145); TSH (W/Ref FT4) 1.19 uIU/mL (0.36-3.74); Total Protein 7.2 g/dL (6.4-8.2); Triglyceride 38 mg/dL (<150); Vitamin D 25 Total 42 ng/mL (30-100)
== END 2024-09-17 04:19 | disposition home or self-care (01) ==
LOC: LBO 04:18
PROVIDERS: PCP Nurse Practitioner Family; Visit Provider Nurse Practitioner Family
DX: Z00.00 Encounter for general adult medical examination without abnormal findings (principal); F41.9 Anxiety disorder, unspecified; R53.83 Other fatigue
CPT/HCPCS: 36415; 80053; 80061; 82306; 85027; 83036; 84443

== ENCOUNTER 2024-09-17 21:51 | Outpatient (REF) | payer BC, SELFPAY ==
[2024-09-17 21:38] LABS: Bilirubin Negative (Negative); Blood Negative (Negative); Clarity Clear (Clear); Glucose Negative (Negative); Ketones Negative (Negative); Leukocyte Esterase Negative (Negative); Nitrite Negative (Negative); Specific Gravity <= 1.005 (1.005-1.025); Urobilinogen 0.2 mg/dL (Up to 0.2)
== END 2024-09-17 21:52 | disposition home or self-care (01) ==
LOC: LBN 21:51
PROVIDERS: PCP Nurse Practitioner Family; Visit Provider Nurse Practitioner Family
DX: R30.0 Dysuria (principal); N89.8 Other specified noninflammatory disorders of vagina
CPT/HCPCS: 81003; 87480; 87510; 87660